=== PATIENT | female | born 1935 | race Hispanic/Latino ===

== ENCOUNTER 2016-10-05 12:45 | Inpatient (IN) | payer MEDICARE, BC ==
[2016-10-05 12:52] VITALS: BMI 20.3
--- NOTE | 2016-10-05 12:56 | ED PDOC ---
Arrival/HPI - General Time Seen by Provider: 10/05/16 12:51 Historian: Patient - Critical Care Critical Care Minutes: 45 minutes - History of Present Illness Narrative History of Present Illness (Text): 10/05/16 12:45 Pt is an 81 year old female, whose past medical history includes 60 yr tobacco hx, Vertigo, COPD, Breast Cancer, and eye surgery, who presents to the emergency room complaining of dizziness and weakness in both of her her legs about an hour prior to arrival. Grandniece called EMS because of the weakness. While en route to ED w/ EMS patient could lift both arms but at emergency room, patient could not lift up her left arm. Pt also c/o a mild headache. Pt noted to have a clonic jerk in her left arm and pt states that she has never had this type of twitching movement in her arm. Patient denies any chest pain or any other complaint at this time. PMD: Dr. Buckner Time/Duration: 1 hour Symptom Onset: Sudden Symptom Course: Worsening Activities at Onset: Light Context: Home Past Medical History - Provider Review Nursing Documentation Reviewed: Yes - Infectious Disease Hx of Infectious Diseases: None - Cardiac Hx Cardiac Disorders: Yes Hx Hypertension: Yes Hx Pacemaker: No - Pulmonary Hx Respiratory Disorders: Yes Hx Chronic Obstructive Pulmonary Disease (COPD): Yes - Neurological Hx Neurological Disorder: No Hx Paralysis: No Hx Transient Ischemic Attacks (TIA): No Hx Vertigo: No - HEENT Hx HEENT Disorder: No - Renal Hx Renal Disorder: No - Endocrine/Metabolic Hx Endocrine Disorders: No Hx Diabetes Mellitus Type 1: No - Hematological/Oncological Hx Blood Disorders: Yes Hx Blood Transfusions: No Hx Blood Transfusion Reaction: No Hx Cancer: Yes (right breast mastectomy) - Integumentary Hx Dermatological Disorder: No - Musculoskeletal/Rheumatological Hx Musculoskeletal Disorders: Yes - Gastrointestinal Hx Gastroesophageal Reflux: Yes - Psychiatric Hx Emotional Abuse: No Hx Physical Abuse: No Hx Substance Use: No - Surgical History Hx Appendectomy: Yes Hx Mastectomy: Yes (right) - Anesthesia Hx Anesthesia: Yes Hx Anesthesia Reactions: No Hx Malignant Hyperthermia: No - Suicidal Assessment Feels Threatened In Home Enviroment: No Family/Social History - Physician Review Nursing Documentation Reviewed: Yes Family/Social History: Neoplasm/Cancer Smoking Status: Heavy Smoker > 10 Cigarettes Daily Hx Alcohol Use: No Hx Substance Use: No Allergies/Home Meds Allergies/Adverse Reactions: Allergies gluten Allergy (Verified 10/05/16 13:08) DIARRHEA Home Medications: Home Meds Medication Instructions Recorded Confirmed Folic Acid 1 mg PO BID 04/17/13 06/12/14 Tiotropium [Spiriva] 18 mcg IH QAM 04/17/13 10/05/16 Magnesium 400 mg PO DAILY 06/11/14 06/12/14 Review of Systems - Review of Systems Constitutional: absent: Fevers, Night Sweats Eyes: absent: Vision Changes ENT: absent: Hearing Changes Respiratory: absent: SOB Cardiovascular: absent: Chest Pain Gastrointestinal: absent: Abdominal Pain Genitourinary Female: absent: Urine Output Changes Musculoskeletal: absent: Back Pain Neurological: Dizziness, Other (Weakness in both legs; jerk in left arm) Endocrine: absent: Diaphoresis Hemo/Lymphatic: absent: Easy Bleeding Psychiatric: absent: Depression Physical Exam Vital Signs Reviewed: Yes Vital Signs Temp Pulse Resp BP Pulse Ox 10/05/16 16:54 106 H 24 128/73 93 L 10/05/16 15:32 93 H 18 108/61 98 10/05/16 15:07 99 H 107/83 10/05/16 14:45 114 H 18 107/83 97 10/05/16 14:40 117 H 12 101/45 L 97 10/05/16 14:38 120 H 18 101/45 L 98 10/05/16 14:12 131 H 18 126/56 L 10/05/16 13:51 98.0 F 130 H 18 104/67 95 Temperature: Afebrile Pulse: Tachycardic Respiratory Rate: Normal Appearance: Positive for: Non-Toxic, Other (in NAD) Pain Distress: None Finger Stick Blood Glucose: 151 - Systems Exam Head: Present: Atraumatic, Normocephalic Pupils: Present: PERRL Extroacular Muscles: Present: EOMI Conjunctiva: Present: Normal Ears: Present: Normal Mouth: Present: Moist Mucous Membranes Pharnyx: Present: Normal Nose (External): Present: Atraumatic Neck: Present: Normal Range of Motion Respiratory/Chest: Present: Clear to Auscultation, Good Air Exchange. No: Respiratory Distress, Accessory Muscle Use Cardiovascular: Present: Normal S1, S2, Irregular Rhythm, Tachycardic. No: Murmurs Abdomen: Present: Normal Bowel Sounds. No: Tenderness, Distention, Peritoneal Signs Back: Present: Normal Inspection Upper Extremity: Present: Other (myoclonic jerking movements in left arm that stopped during exam) Lower Extremity: Present: Normal Inspection. No: Edema Neurological: Present: GCS=15, CN II-XII Intact, Speech Normal Skin: Present: Warm, Dry, Normal Color. No: Rashes Psychiatric: Present: Alert, Oriented x 3, Normal Insight, Normal Concentration Medical Decision Making ED Course and Treatment: 10/05/16 12:45 Impression: Focal seizure left arm Differential Diagnosis included but are not limited to: New onset left arm focal seizure vs. space occupying lesion in the brain vs. intracranial bleed vs. Stroke (less likely) Plan: -- EKG -- Head CT w/o contrast -- Chest X-ray -- Labs -- Reassess and disposition Prior Visits: Notes and results from previous visits were reviewed. Patient last seen in the ED on 04/28/15 status post mechanical fall. Patient signed out leaving Against Medical Advice. Progress Notes: 10/05/16 12:50 Case discussed with Neurologist vibration engineer, Dr. Sandoval, who states that her symptoms are not likely to be stroke-related. Recommends CT and eventual MRI. 10/05/16 13:[address] Sandoval, who agrees with patient plan to admit patient to telemetry. 10/05/16 13:[address] w/o contrast: Creator : Cesar German MD FINDINGS: HEMORRHAGE:No intracranial hemorrhage. BRAIN: There is a well-circumscribed hyper dense mass in the right parietal lobe measuring 12 mm seen on image 28 series 7. There is adjacent vasogenic edema. There is a more poorly defined area of hyper density in the right parietal white matter image 27 with surrounding vasogenic edema. The findings are consistent with metastatic disease. VENTRICLES:Unremarkable. No hydrocephalus. CALVARIUM:Unremarkable. PARANASAL SINUSES:Unremarkable as visualized. No significant inflammatory changes. MASTOID AIR CELLS:Unremarkable as visualized. No inflammatory changes. OTHER FINDINGS:The findings were discussed with Dr. Gonzalez at 1:15 p.m. IMPRESSION: Metastatic disease in the right posterior frontal and parietal lobes with surrounding vasogenic edema. 10/05/16 14:00 Chest X-ray: Creator : Cesar German MD FINDINGS: LUNGS:No active pulmonary disease. PLEURA:No significant pleural effusion identified, no pneumothorax apparent. CARDIOVASCULAR:Normal. OSSEOUS STRUCTURES:No significant abnormalities. VISUALIZED UPPER ABDOMEN:Normal. OTHER FINDINGS:None. IMPRESSION: No active disease. 10/05/16 14:[address] Serrano, who accepts patient into his service. - Critical Care Critical Care Minutes: 45 minutes - Lab Interpretations Lab Results: 10/05/16 13:04 10/05/16 13:26 Lab Results 10/05/16 13:33: Blood Type Cancelled, Antibody Screen Cancelled, BBK History Checked Cancelled 10/05/16 13:26: Sodium 132, Potassium 3.9, Chloride 98, Carbon Dioxide 23, Anion Gap 15, BUN 18, Creatinine 1.0, Est GFR ( Amer) > 60, Est GFR (Non- Af Amer) 53, Random Glucose 128 H, Calcium 8.9, Total Bilirubin 0.5, AST 30, ALT 14, Alkaline Phosphatase 84, Troponin I < 0.01, Total Protein 6.4, Albumin 3.0, Globulin 3.4, Albumin/Globulin Ratio 0.9 L, Triglycerides 130, Cholesterol 135, LDL Cholesterol Direct 73, HDL Cholesterol 35 10/05/16 13:04: WBC 10.9, RBC 4.23, Hgb 12.8, Hct 37.9, MCV 89.6, MCH 30.3, MCHC 33.8, RDW 15.0 H, Plt Count 448, MPV 9.5, Gran % 74.2 H, Lymph % (Auto) 17.0 L, [place] % (Auto) 7.8 H, Eos % (Auto) 0.7 L, Baso % (Auto) 0.3, Gran # 8.12 H, Lymph # 1.9, [place] # 0.9 H, Eos # 0.1, Baso # 0.03, PT 12.6 H, INR 1.17 H, APTT 28.0 - RAD Interpretation Radiology Orders: 10/05/16 12:53 HEAD W/O (CODE STROKE) [CT] Stat CHEST PORTABLE [RAD] Stat - EKG Interpretation EKG Interpretation (Text): Atrial fib with RVR - Medication Orders Current Medication Orders: Tiotropium [place] (Spiriva) 18 mcg IH QAM LISANDRO Discontinued Medications Levetiracetam 1,000 mg/ Sodium (Chloride) 110 mls @ 440 mls/hr IV ONCE ONE Stop: 10/05/16 13:29 Last Admin: 10/05/16 13:37 Dose: 440 MLS/HR eMAR Start Stop Document 10/05/16 13:37 MMA (Rec: 10/05/16 13:39 MMA [id number] Intravenous Solution Start Date 10/05/16 Start Time 13:38 End Date 10/05/16 End time 13:53 Total Infusion Time 15 Lorazepam (Ativan) 1 mg IVP ONCE ONE PRN Reason: Protocol Stop: 10/05/16 12:55 Last Admin: 10/05/16 13:10 Dose: 1 MG Behavioural Document 10/05/16 13:10 [facility] (Rec: 10/05/16 13:21 [facility] [id number]) Maintenance Maintenance Dose No Nonmedicinal Nonmedicinal Interventions See nurse's notes Behavior Behavior for Medication: Anxiety IVP Administration Document 10/05/16 13:10 [facility] (Rec: 10/05/16 13:21 [facility] [id number]) Charges for Administration # of IVP Administrations 1 Metoprolol Tartrate (Lopressor) 25 mg PO STAT STA Stop: 10/05/16 14:41 Last Admin: 10/05/16 15:07 Dose: 25 MG MAR Pulse and Blood Pressure Document 10/05/16 15:07 MMA (Rec: 10/05/16 15:08 MMA [email or web address] Pulse Pulse Rate (60-90) 99 Blood Pressure Blood Pressure (100/60-150/90) 107/83 Metoprolol Tartrate (Lopressor) 5 mg IVP STAT STA Stop: 10/05/16 15:16 Last Admin: 10/05/16 15:32 Dose: Not Given Non-Admin Reason: BP Parameters Not Met MAR Pulse and Blood Pressure Document 10/05/16 15:32 MMA (Rec: 10/05/16 15:33 MMA [email or web address] Pulse Pulse Rate (60-90) 93 Blood Pressure Blood Pressure (100/60-150/90) 108/61 NIHSS Scale ([place]) Time Performed: 12:55 - How Severe is the Stoke Baseline Level of Consciousness: 0=Alert LOC to Questions: 0=Both comments correct LOC to commands: 0=Obeys both correctly Best Gaze: 0=Normal Visual: 0=No visual loss Facial: 0=Normal Motor Arm - Left: 2=Falls before 10 sec (left arm keeps twitching/myoclonic movements) Motor Arm - Right: 0=No drift Motor Leg - Left: 0=No drift Motor Leg - Right: 0=No drift Limb Ataxia: 1=Present Upper or Lower Sensory: 0=Normal Best Language: 0=No aphasia Dysarthia: 0=Normal articulation Extinction & Inattention (Neglect): 0=Normal, no object Score: 3 Risk Level: Minor Stroke Risk - Scribe Statement The provider has reviewed the documentation as recorded by the Margieibjoselin Gonzalez Provider Scribe Attestation: All medical record entries made by the Margieibe were at my direction and personally dictated by me. I have reviewed the chart and agree that the record accurately reflects my personal performance of the history, physical exam, medical decision making, and the department course for this patient. I have also personally directed, reviewed, and agree with the discharge instructions and disposition. Disposition/Present on Arrival - Present on Arrival Any Indicators Present on Arrival: No History of DVT/PE: No History of Uncontrolled Diabetes: No Urinary Catheter: No History Surgical Site Infection Following: None - Disposition Have Diagnosis and Disposition been Completed?: Yes Diagnosis: Focal (motor) epilepsy, Brain metastases, Atrial fibrillation Disposition: HOSPITALIZED Disposition Time: 13:25 Patient Plan: Admission Patient Problems: Current Active Problems Problem Status Diagnosed Brain metastases Acute Focal (motor) epilepsy Acute Condition: SERIOUS
[2016-10-05 13:05] LABS: ADD MANUAL DIFF? NO
[2016-10-05 13:13] LABS: BASO # 0.03 K/mm3 (0.0-2.0); BASO % 0.3 % (0.0-3.0); EOS # 0.1 (0.0-0.7); EOS % 0.7 % (1.5-5.0); GRAN # 8.12 (1.4-6.5); GRAN % 74.2 % (50.0-68.0); HEMATOCRIT 37.9 % (36.0-48.0); LYMPH # 1.9 (1.2-3.4); MEAN CELL VOLUME 89.6 fL (80.0-105.0); MEAN CORPUSCULAR HEMOGLOBIN 30.3 pg (25.0-35.0); MEAN CORPUSCULAR HGB CONC 33.8 g/dl (31.0-37.0); MEAN PLATELET VOLUME 9.5 fl (7.0-11.0); MONO # 0.9 (0.1-0.6); MONO % 7.8 % (1.0-6.0); PLATELET COUNT 448 10^3/uL (120.0-450.0); WHITE BLOOD COUNT 10.9 10^3/ul (4.5-11.0)
[2016-10-05] MEDS ORDERED: levETIRAcetam 1,000 MG in Sodium Chloride 0.9% 100 ML IV ONE (13:15)
[2016-10-05 13:18] LABS: INR 1.17 (0.93-1.08)
--- NOTE | 2016-10-05 13:20 | CT ---
PROCEDURE: CT HEAD WITHOUT CONTRAST. HISTORY: Code Stroke COMPARISON: None available. TECHNIQUE: Axial computed tomography images were obtained through the head/brain without intravenous contrast. Radiation dose: Total exam DLP = 1715 mGy-cm. FINDINGS: HEMORRHAGE: No intracranial hemorrhage. BRAIN: There is a well-circumscribed hyper dense mass in the right parietal lobe measuring 12 mm seen on image 28 series 7. There is adjacent vasogenic edema. There is a more poorly defined area of hyper density in the right parietal white matter image 27 with surrounding vasogenic edema. The findings are consistent with metastatic disease. VENTRICLES: Unremarkable. No hydrocephalus. CALVARIUM: Unremarkable. PARANASAL SINUSES: Unremarkable as visualized. No significant inflammatory changes. MASTOID AIR CELLS: Unremarkable as visualized. No inflammatory changes. OTHER FINDINGS: The findings were discussed with Dr. Gonzalez at 1:15 p.m. IMPRESSION: Metastatic disease in the right posterior frontal and parietal lobes with surrounding vasogenic edema.
[2016-10-05 13:45] LABS: ALB/GLOB RATIO 0.9 (1.1-1.8); ALKALINE PHOSPHATASE 84 U/L (38-133); ALT/SGPT 14 U/L (7-56); AST/SGOT 30 U/L (15-39); BILIRUBIN,TOTAL 0.5 mg/dL (0.2-1.3); BLOOD UREA NITROGEN 18 mg/dL (7-21); CALCIUM 8.9 mg/dL (8.4-10.5); CARBON DIOXIDE 23 mmol/L (21-33); CHLORIDE 98 mmol/L (98-107); CHOLESTEROL 135 mg/dL (130-200); GFR AFRICAN-AMERICAN > 60; GLUCOSE,RANDOM 128 mg/dL (70-110); POTASSIUM 3.9 mmol/L (3.6-5.0); SODIUM 132 mmol/L (132-148); TOTAL PROTEIN 6.4 g/dL (5.8-8.3)
--- NOTE | 2016-10-05 13:50 | RAD ---
HISTORY: code stroke COMPARISON: 09/29/2016 FINDINGS: LUNGS: No active pulmonary disease. PLEURA: No significant pleural effusion identified, no pneumothorax apparent. CARDIOVASCULAR: Normal. OSSEOUS STRUCTURES: No significant abnormalities. VISUALIZED UPPER ABDOMEN: Normal. OTHER FINDINGS: None. IMPRESSION: No active disease.
[2016-10-05 13:58] LABS: TROPONIN I < 0.01 ng/mL
[2016-10-05] MEDS ORDERED: diltiaZEM IVPB 100mg in NS 100 ML IV PRN (14:19)
[2016-10-05] MEDS ORDERED: Metoprolol 1 mg/ml Inj IVP STA (15:15)
--- NOTE | 2016-10-05 16:58 | CARD ---
APPROVED REPORT EKG Measurement Heart [id number] <Conclusion> Atrial fibrillation with rapid ventricular response Right axis deviation RBBB STTW changes Baseline artifact V 4,5
[2016-10-05] MEDS ORDERED: Influenza Vaccine 45 MCG/0.5 ml IM ONE (18:39)
[2016-10-05] MEDS ORDERED: Pneumococcal 23-Valent Vaccine IM ONE (18:39)
[2016-10-06] MEDS ORDERED: Dexamethasone 4 mg/1 ml IVP SCH (08:30)
[2016-10-06] MEDS ORDERED: Sodium Chloride 0.9% 1,000 ML IV SCH (08:45)
[2016-10-06] MEDS: Dexamethasone 4 mg/1 ml IVP SCH ×2 (09:11→21:32)
[2016-10-06] MEDS: Tiotropium 18 mcg Cap For Inhalation IH SCH (09:16)
--- NOTE | 2016-10-06 09:47 | CARD ---
APPROVED REPORT EKG Measurement Heart [id number] <Conclusion> Atrial fibrillation with rapid ventricular response Right axis deviation RBBB STTW changes No change
--- NOTE | 2016-10-06 10:09 | CON ---
DATE: 10/06/2016 REASON FOR CONSULTATION: Weakness and twitching on the left side. HISTORY OF PRESENTING ILLNESS: The patient is an 81-year-old female who was brought into the [facility] after she was feeling dizzy and weakness in both her arms and legs about 1 hour prior to arrival. In the Emergency Room, patient was noted to have weakness in her left arm and left arm was twitching. The patient was unable to lift her left arm. A code stroke was called. The patient was noted to h ave clonic movement in her left arm and apparently she never had this before. Once patient was given Ativan and her twitching stopped and after that, patient was able to lift her arm without any proble m. The patient denies to have any headache or dizziness. Never had a seizure before. Denies any fu rther weakness in her arms or legs. REVIEW OF SYSTEMS: Denies any headache, chest pain, shortness of breath, abdominal pain, constipatio n, diarrhea, dysuria, pyuria, cough or sputum production. PAST MEDICAL HISTORY: Includes breast cancer, hypertension. MEDICATIONS AT HOME: Included Spiriva, omeprazole, olmesartan/hydrochlorothiazide, iron, folic acid, vitamin B12, ascorbic acid and Arimidex. ALLERGIES: GLUTEN. SOCIAL HISTORY: Denies smoking, use of alcohol or illicit drugs. FAMILY HISTORY: Reviewed and noncontributory to the patient. PHYSICAL EXAMINATION: GENERAL: The patient is an elderly, pleasant female, lying on the bed, in no acute distress. VITAL SIGNS: Her blood pressure is 136/60, heart rate is 83 per minute, breathing at a rate of 16 pe r minute, temperature is 97.5 degrees Fahrenheit. HEENT: Head is normocephalic, atraumatic. NECK: Supple. There are no carotid bruits. LUNGS: Clear. CARDIOVASCULAR: S1, S2 audible. No murmurs. ABDOMEN: Soft, nontender, bowel sounds are present. NEUROLOGIC EXAMINATION: MENTAL STATUS: The patient is awake, alert, oriented to time, place, person. Speech is fluent. Nam ing and repetition normal. Memory and cognition appears intact. CRANIAL NERVES: Pupils are 3 mm bilaterally, reactive to light. Visual ortiz are full. Extraocula r movements are intact. There is no facial asymmetry. Palate is upgoing bilaterally and tongue is m idline. MOTOR: Tone is normal. Power is 5/5 bilaterally in all extremities. Reflexes 1+ and symmetrical. Plantars downgoing bilaterally. CEREBELLAR: [id number] shows no dysmetria. LABORATORIES: Reviewed, shows WBC of 10.9, hemoglobin 12.8, hematocrit of 37.9 and platelets of 448. Sodium is 132, potassium 3.9, chloride 98, carbon dioxide 23, BUN of 18, creatinine 1.0, and glucos e of 128. She had a CT scan of the head done, which shows metastatic disease in the right posterior frontal and parietal lobes with surrounding vasogenic edema. IMPRESSION: 1. New onset of focal seizure, which appears to be secondary to underlying brain metastasis. 2. History of breast cancer. RECOMMENDATIONS: 1. The patient was given Keppra in the Emergency Room. We will continue her on Keppra 250 mg twice a day. 2. The patient also was initiated on Decadron 4 mg every 8 hours. Her edema is not that significant . We will decrease it to 4 mg every 12 hours and then slowly taper it off. 3. The patient to have MRI of the brain with and without contrast. 4. The patient to have an electroencephalogram. 5. The patient to have oncology evaluation and may need radiation therapy. 6. Please continue supportive care and other treatment. Thank you for the opportunity to participate in the care of this patient. Doug Saenz MD cc: [id number] TT: 10/06/2016 10:08:48 Confirmation # [id number] Dictation # [id number]
--- NOTE | 2016-10-06 10:45 | HP ---
CHIEF COMPLAINT AND HISTORY OF PRESENT ILLNESS: This is an 81-year-old female who is coming in to [facility] with complaints of left arm weakness. The patient was having some confusion. There is al so weakness in her legs, and so she was brought in for further evaluation. She has a past medical hi story of COPD, breast cancer with mastectomy. The patient came in to the Emergency Room, was having focal neurological seizure-like activity. She was given Ativan and was started on anti-seizure medications. The patient is currently comfortable. She denies any chest pain or shortness of breath. She does know the place. She knows the year, the President. She does not know exactly what happened that brought her to the hospital. The patient's clonic jerks have decreased. She has no abdominal pain, no back pain, no dysuria or frequency, no n octuria. She had a colonoscopy done in 05/2014 that shows polyps. The patient had a breast ultrasound done in 06/2016 that showed no breast masses. There was also a mammogram that was done in 06/2016. It shows no evidence of malignancy or changes. The patient's niece was able to give me information about the patient's history. The patient had a m astectomy done by Dr. Sanchez. The patient was also on a "pill" for 5 years. It may have been tamox ifen. ALLERGIES: GLUTEN. HOME MEDICATIONS: Folic acid, Spiriva, magnesium. PAST MEDICAL HISTORY: Hypertension, celiac disease, GERD, peripheral edema, COPD, colon polyps. PAST SURGICAL HISTORY: Appendectomy, right breast mastectomy. SOCIAL HISTORY: She is a smoker, half a pack per day for 60 years. Continues to smoke. She lives w ith her niece. FAMILY HISTORY: Noncontributory. PHYSICAL EXAMINATION: VITAL SIGNS: Temperature is 97.5, pulse of 83. Blood pressure is 136/60, respirations 18, O2 satura tion 98%. Height is 5 feet 3 inches. Weight is 115 pounds. BMI is 20.4. GENERAL: The patient is lying in bed, flat, and in no apparent distress. HEAD AND NECK EXAM: Atraumatic, normocephalic. Conjunctivae are pink. Throat clear and mouth with moist mucosa. Oropharynx benign. EYES: Extraocular movements are intact. PERRLA. NECK: Supple. No JVD, thyromegaly, or adenopathy. No bruits. HEART: S1 and S2 regular rate and rhythm. No murmurs, rubs, or gallops. LUNGS: Clear to auscultation bilaterally. No wheezing rales or rhonchi appreciated. No retraction s on exam. ABDOMEN: Soft, nontender, nondistended. Bowel sounds are positive in all quadrants. No rebound. No hepatosplenomegaly. EXTREMITIES: No cyanosis, clubbing, or edema. In the left arm, there is 4/5 power distally. NEURO: No facial asymmetry, tongue is midline, no uvula deviation. Power is 5/5 in upper extremity and 5/5 in lower extremity. Sensation is normal in upper extremity and lower extremity. PSYCH: Awake, alert, oriented x3. No anxiety or depression symptoms. Good insight. Normal affec t. : No CVA tenderness VASCULAR: 2+ pulses in carotid and pedal pulses. SKIN: No erythema or abnormal nodules noted. SPINE: Normal curvature. LYMPHADENOPATHY: No anterior cervical or posterior cervical adenopathy. No inguinal adenopathy. LABORATORY DATA: White count of 10.9, hemoglobin 12.8, and platelet count is 448. INR is 1.1. Chem istry shows a sodium 132, potassium 3.9. Creatinine is 1.0. Alk phos of 84. LDL is 73. CT of the head shows metastatic disease in the right posterior frontal and parietal lobes. Chest x-ray done shows no active disease. EKG shows atrial fibrillation with rapid rate. Repeat EKG shows a heart rate of 134 with rapid rate. There are T-wave inversions in V1 and V2. ASSESSMENT: 1. Focal seizures secondary to brain metastasis. 2. Metastatic lesions in the brain, unknown primary. 3. Atrial fibrillation, new onset. 4. Smoking. 5. Gait dysfunction. 6. Cerebral edema. PLAN: The patient is going to be admitted to the hospital. She has new brain lesions. She has a hi story of breast cancer that was treated with no signs of metastatic disease. She had colon polyps th at were removed about 3 years ago. The patient is going to be seen by Dr. Vincent for consultation. I will also ask neurology to follow the patient. The patient has been started on dexamethasone for the cerebral edema. The patient was given anti-seizure medications. I will place the patient on bubba otine because of the smoking history, and she is not able to smoke. She is going to be on IV fluids. She is going to have a swallowing evaluation done. She is currently n.p.o. We will also get a TSH . The patient is going to be placed on Cardizem for the atrial fibrillation. Syd Serrano MD cc: [id number] TT: 10/06/2016 10:44:40 jn
--- NOTE | 2016-10-06 11:34 | CON ---
DATE: 10/06/2016 INDICATIONS: Atrial fibrillation. HISTORY OF PRESENT ILLNESS: This is an 81-year-old woman admitted yesterday through the Emergency Room. She was brought there by her daughter because of weakness, dizziness, weakness of her legs and left upper extremity along with jerking motions of the left arm. These findings were relatively new. There was also headache. There was no chest pain, no shortness of breath, orthopnea, PND, syncope, presyncope, lightheadedness, palpitations, claudication, fever, chills, cough, sputum production or hemoptysis. There was no abdominal pain, nausea, vomiting, diarrhea, constipation, or melena. PAST MEDICAL HISTORY: Notable for breast cancer status post right mastectomy, hypertension and COPD. She is a current smoker of about 1/2 pack of cigarettes per day. There is no history of myocardial infarction, angina, rheumatic fever , congestive heart failure, diabetes, stroke, or gout. MEDICATIONS: At the time of admission include Arimidex, Caltrate plus vitamin D , Centrum, Feosol, folic acid, magnesium, olmesartan HCT, omeprazole, Spiriva, vitamin B12, vitamin C. ALLERGIES: There are no medication allergies reported. SOCIAL HISTORY: She lives at home. She is a smoker. She does not drink significantly. FAMILY HISTORY: Noncontributory. REVIEW OF SYSTEMS: Ten point review of systems otherwise unremarkable except as noted above. PHYSICAL EXAMINATION: GENERAL: She is a well-developed elderly woman lying in bed on telemetry, in no acute distress. VITAL SIGNS: She is in sinus rhythm at the moment, but has been in atrial fibrillation, heart rate is 66. She is afebrile, blood pressure 121/61, respirations 18-20, O2 sat 97-98% on nasal cannula. HEENT: Reveals no neck vein distention, thyromegaly, or carotid bruits. Mucous membranes are moist. Conjunctivae are pink. NECK: Supple. CHEST: Lung ortiz are clear. HEART: Revealed normal first and second heart sounds. The rhythm is slightly irregular. ABDOMEN: Soft, bowel sounds are present. No mass, organomegaly, tenderness, rebound, or guarding. NEUROLOGIC: She is awake and alert. SKIN: Warm and dry. No rash or cellulitis. PSYCHIATRIC: Normal as to mood and affect. EXTREMITIES: No cyanosis, clubbing, or edema. LABORATORY AND IMAGING: A chest x-ray is a portable study; reveals no active disease. EKG: Atrial fibrillation, right bundle branch block, ST-T wave changes. CT scan of the head is noted, consistent with metastatic disease. CBC is unremarkable. PT, INR, PTT unremarkable. Electrolytes, BUN, creatinine , blood sugars unremarkable. LFTs unremarkable. Troponin less than 0.01. Lipids noted: LDL 73. IMPRESSION: The patient is an 81-year-old woman smoker admitted with dizziness and weakness, found to have apparent metastatic disease on CT scan of the head with a history of breast cancer status post right mastectomy, who was admitted with atrial fibrillation with rapid ventricular response. She has history of cigarette smoking and chronic obstructive pulmonary disease as well as hypertension. I have discussed the case with Dr. Serrano. At this time, she is on telemetry. Very conservative care is planned. Hospice has been asked to evaluate her. She is on p.o. Cardizem at this moment; we will titrate this to achieve rate control. Anticoagulation to prevent embolic events should be considered but, given her brain metastasis, I would hold on this and ask neurology for an opinion. She is getting diltiazem, Spiriva, IV fluids and nicotine patch. MRI of the brain is ordered. She has a neurologic consultation with Dr. Saenz. A TSH is ordered. I will follow along with you. Overall, conservative cardiac care is anticipated. Humberto Norton MD cc: [id number] TT: 10/06/2016 11:33:01 Confirmation # [id number] Dictation # [id number] daja VILLASENOR
[2016-10-06] MEDS ORDERED: Gadodiamide 287 MG/ML VIAL (15ML) IV ONE (13:23)
--- NOTE | 2016-10-06 14:08 | MRI ---
PROCEDURE: MRI BRAIN WITH AND WITHOUT CONTRAST HISTORY: seizure brain mets COMPARISON: Comparison is made to the previous MRI dated 05/04/2015 TECHNIQUE: Multiplanar, multisequence MR images of the brain were obtained with and without intravenous contrast enhancement. FINDINGS: HEMORRHAGE: There are multiple foci of hypointense T2 GRE images surrounding with vasogenic edema likely represent hemorrhagic metastasis that demonstrate slight hyperintense T1 signal also. DWI: Evidence of a territorial infarct. Multiple lesion in the brain demonstrate mild diffusion restriction corresponding to enhancing lesion and suggestive of metastasis. BRAIN PARENCHYMA: Multiple enhancing mass lesions in the brain suggestive of metastasis surrounding with large vasogenic edema. The largest lesion is seen at the right parietal lobe measures 1.3 centimeter demonstrate ring enhancement and demonstrate hypo intense T2 GRE signal surrounding with large vasogenic edema. There is a slight right to left midline shift approximately 3.3 millimeter noted. Moderate atrophy and moderate to extensive chronic microvascular white matter ischemic disease. ENHANCEMENT: Multiple enhancing lesions seen. VENTRICLES: Dilated ventricles likely due to atrophy P CRANIUM: Unremarkable. ORBITS: Grossly unremarkable. PARANASAL SINUSES/MASTOIDS: Clear VASCULAR SYSTEM: Skull base flow voids intact. OTHER FINDINGS: None . IMPRESSION: Suboptimal study due to patient's motion artifact. Multiple enhancing mass lesions surrounding with vasogenic edema consistent with widespread brain metastasis. The largest lesion seen at the right parietal lobe measures 1.3 centimeter demonstrates hypointense T2 GRE signal suggestive of hemorrhagic metastasis. Slight approximately 3 millimeter [id number] midline shift. Atrophy and white matter chronic microvascular ischemic disease.
--- NOTE | 2016-10-06 20:21 | EEG ---
DATE: 10/06/2016 INTRODUCTION: This is a digitally recorded EEG monitoring using standard EEG montages. BACKGROUND RHYTHM: The EEG shows a background activity of 8 Hz alpha activity in parietooccipital re gion. The EEG activity is bilaterally symmetrical and synchronous. There is attenuation of the back ground activity on eye opening. Small amount of myogenic artifact noticed in this EEG recording. ABNORMAL POTENTIALS: No spikes, sharp waves or focal slowing was seen. PHOTIC STIMULATION AND HYPERVENTILATION: Photic stimulation did not reveal any abnormality. Hyperve ntilation was not performed. IMPRESSION: Normal EEG. No epileptiform activity seen in this EEG recording. Doug Saenz MD cc: [id number] TT: 10/06/2016 20:20:50 Confirmation # [id number] Dictation # [id number] [email or web address]
--- NOTE | 2016-10-07 02:57 | CON ---
DATE: 10/06/[address] Vincent. CHIEF COMPLAINT: Mental status change, weakness. HISTORY OF PRESENT ILLNESS: The patient is an 81-year-old female admitted by the Emergency Room for focal neurologic changes with a history of left arm weakness, confusion, dizziness. At initial visit , patient unable to lift up her left arm with code stroke called. She was given Ativan, for which th is then improved. With this, the patient is now seen with family members at the bedside, sitting up on the telemetry floor bed in no acute distress, unaware of her positive findings on her recent testi ng with a CT of the head with metastatic disease in the right posterior frontal and parietal lobes wi th surrounding vasogenic edema done yesterday. ALLERGIES: GLUTEN. MEDICATIONS: Spiriva, omeprazole, losartan and hydrochlorothiazide, iron, folic acid, vitamin B12, a scorbic acid and Arimidex. PAST MEDICAL HISTORY: Significant for hypertension, GERD, celiac disease, peripheral edema, COPD, co lonic polyps, breast cancer. She is status post right breast mastectomy and appendectomy. The patient's previous EKGs were reviewed with the patient now, noted to be in atrial fibrillation wi th rapid ventricular response, not noted on EKG 04/2015. 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 Her other testing at that point included ER positive, IN negative, HER-2 negative findings agai n in 01/31/2012. The patient's only other testing will be reviewed below. FAMILY HISTORY AND SOCIAL HISTORY: Noncontributory. The patient is a smoker, half pack a day for 60 years, continues to smoke. Nonethanolic. REVIEW OF SYSTEMS: Essentially negative to questioning except as above. LABORATORY DATA: There is report that a mammogram done 06/2016 showed no evidence of malignancy or c hanges with Dr. Sanchez performing her mastectomy in the past. PHYSICAL EXAMINATION: VITAL SIGNS: Temperature 97.7, pulse 88, respirations 18, blood pressure 127/66, pulse ox of 98%. HEENT: Unremarkable. NECK: Supple. HEART: Irregular, irregular. LUNGS: Clear. ABDOMEN: Soft, nontender with history of invasive ductal carcinoma with mastectomy on the right. EXTREMITIES: No edema. SKIN: Warm, dry and clear. NEUROLOGIC: Awake and alert, but confused. The patient's labs were done, white blood cell count yesterday was 10.9, hemoglobin 12.8, hematocrit 37.9, platelet count of 448,000 with a chem metabolic panel from yesterday within normal limits. Non fasting glucose of 111. Her INR was 1.17. IMAGING: The patient's chest x-ray was done yesterday, it was read as no active disease. CAT scan of her head was done yesterday, was read as metastatic disease in the right posterior fronta l and parietal lobes with surrounding vasogenic edema. Her EKG was done yesterday, showing atrial fibrillation with rapid ventricular response, right axis d eviation, right bundle branch block, ST-T wave changes, baseline artifact. A repeat EKG was done lat er on that afternoon, which was read as atrial fibrillation, right axis deviation, RBBB no change. A sleep and awake EEG was done showing normal EEG, no epileptiform activity seen on the EEG. MRI of her brain was done today. It was read as suboptimal study due to motion, multiple enhancing m ass lesions surrounding vasogenic edema consistent widespread brain metastases, largest lesion right parietal lobe measuring 1.3 cm, demonstrates hyperintense T2 GRE signal suggestive of hemorrhagic met astases with slight approximately 3 mm right to left midline shift, atrophy of white matter, chronic microvascular ischemia. ASSESSMENT: Mental status change secondary to newly diagnosed brain metastatic disease, history of b reast cancer, rule out seizure disorder, atrial fibrillation new onset, history of dizziness, cerebra l edema, smoker, hypertension, chronic obstructive pulmonary disease. PLAN: The patient is to continue present medical regimen with IV Decadron being given with recommend ations for a consult with Dr. Nagel, radiation oncology, as per Dr. Vincent's recommendation with the p rimary neoplastic change unknown at present. Suspected to be tumor markers with continued xu toring of the patient with seizure prophylaxis with Keppra to continue as per Dr. Saenz. Danielle hester ch was also applied with IV steroids to continue. We will let GI prophylaxis with an H2 janelle. He r atrial fibrillation will be addressed by Dr. Norton with conservative care plan. Prognosis for thi s patient is guarded. Aashish Barbara CRAIG cc: [id number] TT: 10/07/2016 02:57:30 Confirmation # [id number] Dictation # [id number] mn
[2016-10-07 06:16] LABS: HEMATOCRIT 31.1 % (36.0-48.0); MEAN CELL VOLUME 88.4 fL (80.0-105.0); MEAN CORPUSCULAR HEMOGLOBIN 29.5 pg (25.0-35.0); MEAN CORPUSCULAR HGB CONC 33.4 g/dl (31.0-37.0); MEAN PLATELET VOLUME 9.6 fl (7.0-11.0); RED CELL DISTRIBUTION WIDTH 14.8 % (11.5-14.5); WHITE BLOOD COUNT 6.2 10^3/ul (4.5-11.0)
[2016-10-07 06:40] LABS: ALB/GLOB RATIO 0.9 (1.1-1.8); ALKALINE PHOSPHATASE 66 U/L (38-133); ALT/SGPT 19 U/L (7-56); AST/SGOT 24 U/L (15-39); BILIRUBIN,TOTAL 0.3 mg/dL (0.2-1.3); BLOOD UREA NITROGEN 19 mg/dL (7-21); CALCIUM 8.5 mg/dL (8.4-10.5); CARBON DIOXIDE 28 mmol/L (21-33); CHLORIDE 102 mmol/L (95-110); GFR AFRICAN-AMERICAN > 60; GLUCOSE,RANDOM 121 mg/dL (70-110); POTASSIUM 4.3 mmol/L (3.6-5.0); SODIUM 135 mmol/L (132-148); TOTAL PROTEIN 5.3 g/dL (5.8-8.3)
[2016-10-07 07:16] LABS: CARCINOEMBRYONIC ANTIGEN 2.7 ng/mL (0.0-3.0); THYROID STIMULATING HORMONE 0.31 mIU/mL (0.46-4.68)
--- NOTE | 2016-10-07 08:30 | CP.PCM.PN ---
Subjective - Date & Time of Evaluation Date of Evaluation: 10/07/16 Time of Evaluation: 08:00 - Subjective Subjective: Stable on on 2R. No CP or SOB. V/S noted. RSR PE: Lungs: clear Cor.: S1S2 Abd.: soft Ext. no edema Neuro.: alert Labs noted. Brain MRI noted. Objective - Vital Signs/Intake and Output Vital Signs (last 24 hours): Temp Pulse Resp BP Pulse Ox 97.6 F 69 18 137/73 100 10/07/16 06:00 10/07/16 06:00 10/07/16 06:00 10/07/16 06:00 10/07/16 06:00 Intake and Output: 10/07/16 10/07/16 06:59 18:59 Intake Total 950 Balance 950 - Medications Medications: Current Medications Acetaminophen (Tylenol 325mg Tab) 650 mg PO Q4H PRN PRN Reason: Pain, Mild (1-3) Dexamethasone (Decadron Inj) 4 mg IVP Q12 [facility] Last Admin: 10/06/16 21:32 Dose: 4 mg Diltiazem HCl (Cardizem) 30 mg PO QID [facility] Last Admin: 10/06/16 21:32 Dose: 30 mg Famotidine (Pepcid) 20 mg PO DAILY [facility] Levetiracetam (Keppra) 250 mg PO BID [facility] Last Admin: 10/06/16 17:43 Dose: 250 mg Nicotine (Nicoderm Cq) 1 patch TD DAILY [facility] Last Admin: 10/06/16 09:15 Dose: 1 patch Tiotropium [place] (Spiriva) 18 mcg IH QAM [facility] Last Admin: 10/06/16 09:16 Dose: 18 mcg - Labs Labs: 10/07/16 05:00 10/07/16 05:00 PT 12.6 Seconds (9.9-11.8) H 10/05/16 13:04 INR 1.17 (0.93-1.08) H 10/05/16 13:04 APTT 28.0 Seconds (23.7-30.8) 10/05/16 13:04 Assessment and Plan - Assessment and Plan (Free Text) Plan: Assessment: Weakness, left arm and leg PAF Brain metastases H/O Braest cancer, s/p right mastectomy COPD/Smoker GERD Celiac Disease Colonic Polyps S/P appendectomy Plan: Continue PO cardizem. As per neuro., oncology,radiation oncology Hold A/C for now.
--- NOTE | 2016-10-07 09:01 | PN ---
DATE: 10/07/2016 SUBJECTIVE: The patient is alert and awake. She has no complaints of any headaches, no dizziness. PHYSICAL EXAMINATION: VITAL SIGNS: Temperature is 97.6, pulse of 69, blood pressure is 137/73, respirations 18. GENERAL: The patient comfortable, in no acute distress. HEENT: Anicteric sclerae. Moist mucosa. NECK: No JVD or adenopathy. CARDIAC: S1/S2. No murmurs. No rubs. Regular. RESPIRATORY: Clear to auscultation bilaterally. No wheezes, rales, or rhonchi. Good air entry. ABDOMEN: Bowel sounds are positive, soft, nontender, and nondistended. EXTREMITIES: No edema. Has 1+ pulses. LABORATORIES: White count of 6.2, hemoglobin 10.4. Creatinine is 1.0. MRI of the brain done shows enhancing mass lesions surrounding with vasogenic edema consistent with b rain mets. The largest lesion is in the right parietal lobe. That is 1.3 cm suggestive of hemorrhag ic metastasis. There is a slight right to left midline shift. There is atrophy. EEG is normal. ASSESSMENT: 1. Brain mass, right parietal lobe of 1.3 cm with edema. 2. Cerebral edema with right to left midline shift of 3 mm. 3. Atrial fibrillation, new onset. 4. Smoking. 5. Gait dysfunction. 6. Left arm weakness. 7. History of breast cancer with right mastectomy x 5 years. 8. Colon polyps. PLAN: The patient is currently comfortable. On reviewing the patient's chest x-ray, the x-ray that was recently done by on 09/29/2016 that showed an infiltrate and the x-ray done on 10/05/2016 does not show an infiltrate. I will order a CT of the chest to evaluate further. The patient is be ing followed by Dr. Vincent's group. I will discontinue the patient's IV fluids. The patient is on Keppra at 250 mg b.i.d. I did speak to Dr. Saenz from neurology. The patient is on Decadron 4 mg IV q. 12. The patient is going to continue with Cardizem for rate control. The patient is on Spiriva a s an inhaler. A regular diet has been ordered. She passed her swallowing evaluation. The patient a lso had evaluation by physical therapy. I did speak to the patient's niece yesterday to give her an update on the patient's diagnosis and plan of care. She does have a history of breast cancer and col on polyps. We will continue to follow closely. She is also on a Nicoderm patch because of a history of smoking. Syd Serrano MD cc: [id number] TT: 10/07/2016 09:01:12 Confirmation # [id number] Dictation # [id number] en
--- NOTE | 2016-10-07 09:30 | CP.PCM.CON ---
History of Present Illness - History of Present Illness History of Present Illness: Palliative consult requested by Dr Marilyn Serrano Reason: Goals of care /advance care planning 81 year old female who presented to ED with weakness and confusion. CT of the head showed metastatic disease in the right posterior and parietal lobes, cerebral edema. EKG showed atrial fibrillation. Chest x ray showed no active disease PMHx: COPD, breast cancer s/p R mastectomy, colonoscopy with removal of polyps three years ago Social History: Current smoker,60 pack year. No alcohol or drug use. Lives with her niece Jagdish Mack. Family History: Non contributory. Advance Care Planning:She does not have an Advance Directive Review of Systems:She complains of weakness and vertigo which maker her feel unsteady on her feet. All other systems negative Past Patient History - Infectious Disease Hx of Infectious Diseases: None - Past Social History Smoking Status: Heavy Smoker > 10 Cigarettes Daily - CARDIAC Hx Hypertension: Yes - PULMONARY Hx Chronic Obstructive Pulmonary Disease (COPD): Yes - NEUROLOGICAL Hx Neurological Disorder: No Hx Paralysis: No Hx Transient Ischemic Attacks (TIA): No Hx Vertigo: No - HEENT Hx HEENT Problems: No - RENAL Hx Chronic Kidney Disease: No - ENDOCRINE/METABOLIC Hx Endocrine Disorders: No Hx Diabetes Mellitus Type 1: No - HEMATOLOGICAL/ONCOLOGICAL Hx Cancer: Yes (Breast, mets to brain) - INTEGUMENTARY Hx Dermatological Problems: No - MUSCULOSKELETAL/RHEUMATOLOGICAL Hx Musculoskeletal Disorders: Yes - GASTROINTESTINAL Hx Gastroesophageal Reflux: Yes - GENITOURINARY/GYNECOLOGICAL Hx Genitourinary Disorders: No - PSYCHIATRIC Hx Emotional Abuse: No Hx Physical Abuse: No Hx Substance Use: No - SURGICAL HISTORY Hx Appendectomy: Yes Hx Mastectomy: Yes (right) - ANESTHESIA Hx Anesthesia: Yes Hx Anesthesia Reactions: No Hx Malignant Hyperthermia: No Meds Allergies/Adverse Reactions: Allergies Allergy/AdvReac Type Severity Reaction Status Date / Time gluten Allergy DIARRHEA Verified 10/05/16 13:08 - Medications Medications: Current Medications Acetaminophen (Tylenol 325mg Tab) 650 mg PO Q4H PRN PRN Reason: Pain, Mild (1-3) Dexamethasone (Decadron Inj) 4 mg IVP Q12 [facility] Last Admin: 10/06/16 21:32 Dose: 4 mg Diltiazem HCl (Cardizem) 30 mg PO QID [facility] Last Admin: 10/06/16 21:32 Dose: 30 mg Famotidine (Pepcid) 20 mg PO DAILY [facility] Levetiracetam (Keppra) 250 mg PO BID [facility] Last Admin: 10/06/16 17:43 Dose: 250 mg Nicotine (Nicoderm Cq) 1 patch TD DAILY [facility] Last Admin: 10/06/16 09:15 Dose: 1 patch Tiotropium [place] (Spiriva) 18 mcg IH QAM [facility] Last Admin: 10/06/16 09:16 Dose: 18 mcg Physical Exam - Constitutional Appears: No Acute Distress, Chronically Ill - Head Exam Head Exam: NORMAL INSPECTION - Eye Exam Eye Exam: Normal appearance, PERRL - ENT Exam ENT Exam: Mucous Membranes Moist, Normal Oropharynx - Neck Exam Neck exam: Positive for: Normal Inspection - Respiratory Exam Respiratory Exam: Decreased Breath Sounds, NORMAL BREATHING PATTERN - Cardiovascular Exam Cardiovascular Exam: Irregular Rhythm, +S1, +S2 - GI/Abdominal Exam GI & Abdominal Exam: Normal Bowel Sounds, Soft Additional comments: no tenderness or guarding - Extremities Exam Extremities exam: Positive for: full ROM, normal inspection - Neurological Exam Neurological exam: Alert, Oriented x3 - Psychiatric Exam Psychiatric exam: Normal Mood - Skin Skin Exam: Dry, Warm Additional comments: no rashes or wounds - Additional Findings Additional findings: Palliative performance scale rating 50%. Results - Vital Signs Recent Vital Signs: Last Vital Signs Temp 97.6 F 10/07/16 06:00 Pulse 69 10/07/16 06:00 Resp 18 10/07/16 06:00 BP 137/73 10/07/16 06:00 Pulse Ox 100 10/07/16 06:00 - Labs Result Diagrams: 10/07/16 05:00 10/07/16 05:00 Labs: Laboratory Results - last 24 hr 10/06/16 10/06/16 10/06/16 07:00 12:07 16:07 WBC RBC Hgb Hct MCV MCH MCHC RDW Plt Count MPV Sodium Potassium Chloride Carbon Dioxide Anion Gap BUN Creatinine Est GFR ( Amer) Est GFR (Non-Af Amer) POC Glucose (mg/dL) 89 116 H Random Glucose Calcium Total Bilirubin AST ALT Alkaline Phosphatase Total Protein Albumin Globulin Albumin/Globulin Ratio Carcinoembryonic Ag TSH 3rd Generation Antibody Identification Anti E Antigen Identification E Antigen - NEGATIVE 10/06/16 10/07/16 10/07/16 21:25 05:00 07:16 WBC 6.2 D RBC 3.52 Hgb 10.4 L Hct 31.1 L MCV 88.4 MCH 29.5 MCHC 33.4 RDW 14.8 H Plt Count 382 MPV 9.6 Sodium 135 Potassium 4.3 Chloride 102 Carbon Dioxide 28 Anion Gap 9 L BUN 19 Creatinine 0.8 Est GFR ( Amer) > 60 Est GFR (Non-Af Amer) > 60 POC Glucose (mg/dL) 164 H 135 H Random Glucose 121 H Calcium 8.5 Total Bilirubin 0.3 AST 24 ALT 19 Alkaline Phosphatase 66 Total Protein 5.3 L Albumin 2.5 L Globulin 2.8 Albumin/Globulin Ratio 0.9 L Carcinoembryonic Ag 2.7 TSH 3rd Generation 0.31 L Antibody Identification Antigen Identification Assessment & Plan - Assessment and Plan (Free Text) Assessment: 81 year old female admitted with cerebral edema secondary to brain metastases, new onset atrial fibrillation, deconditioning, gait dysfunction. Patient is pleasant,alert and oriented. She denies pain, nausea, vomiting, shortness of breath. She states her appetite is fair and that she has lia lost some weight over the last few weeks. Patient states that she has a Living Will and explains that her niece Jagdish is her health care proxy. Jagdish is present during our conversation. Patient states that she does not want to be intubated, nor does she want CPR or feeding tube if her condition worsens. Jagdish affirms her statement and will bring a copy of the Advance Directive for our records. POLST explained in detail, questions answered. Will considering completing POLST prior to discharge. Time spent with patient and niece discussion goals of care, advance care planning, 25 minutes. Plan: Will assist with advance care planning - Date & Time Date: 10/07/16 Time: 16:00
--- NOTE | 2016-10-07 10:33 | CP.PCM.CON ---
History of Present Illness - History of Present Illness History of Present Illness: Ms Gabriel is an 81 year old female with newfound multifocal brain metastases. Her past medical history is significant for right breast cancer status post right mastectomy in 2011 followed by an aromatase inhibitor for a couple of years. She was last seen by you in 2014, and was then lost to follow up. She presented to [facility] with confusion. Her niece and her nieces daughter noticed this behavioral change. She also was having left hand weakness. She was also having dizziness and headaches with forgetfulness in the past month. They had called an ambulance, and was brought to the emergency room. A CT of the head on October 05, 2016 revealed a well- circumscribed hyperdense mass in the right parietal lobe measuring 1.2cm with edema. There was a poorly defined mass in the right parietal region with edema. A MRI of the brain on October 06, 2016 revealed multiple enhancing mass lesions suggestive of metastases with edema, the largest was in the right parietal region. She is currently on dexamethasone. She is referred to us for consideration of palliative radiation therapy. Review of Systems - Respiratory Respiratory: Cough, Dyspnea - Musculoskeletal Musculoskeletal: Back Pain - Neurological Neurological: Confusion, Dizziness, Headaches Past Patient History - Infectious Disease Hx of Infectious Diseases: None - Past Social History Smoking Status: Heavy Smoker > 10 Cigarettes Daily Alcohol: None Home Situation {Lives}: With Family - CARDIAC Hx Hypertension: Yes - PULMONARY Hx Chronic Obstructive Pulmonary Disease (COPD): Yes - NEUROLOGICAL Hx Neurological Disorder: No Hx Paralysis: No Hx Transient Ischemic Attacks (TIA): No Hx Vertigo: No - HEENT Hx Cataracts: Yes - RENAL Hx Chronic Kidney Disease: No - ENDOCRINE/METABOLIC Hx Endocrine Disorders: No Hx Diabetes Mellitus Type 1: No - HEMATOLOGICAL/ONCOLOGICAL Hx Cancer: Yes (h/o right breast cancer in 2012 status post mastectomy and AI) - INTEGUMENTARY Hx Dermatological Problems: No - MUSCULOSKELETAL/RHEUMATOLOGICAL Hx Musculoskeletal Disorders: Yes - GASTROINTESTINAL Hx Gastroesophageal Reflux: Yes Other/Comment: celiac disease - GENITOURINARY/GYNECOLOGICAL Hx Genitourinary Disorders: No - PSYCHIATRIC Hx Emotional Abuse: No Hx Physical Abuse: No Hx Substance Use: No - SURGICAL HISTORY Hx Appendectomy: Yes Hx Mastectomy: Yes (right) - ANESTHESIA Hx Anesthesia: Yes Hx Anesthesia Reactions: No Hx Malignant Hyperthermia: No Meds Allergies/Adverse Reactions: Allergies Allergy/AdvReac Type Severity Reaction Status Date / Time gluten Allergy DIARRHEA Verified 10/05/16 13:08 - Medications Medications: Current Medications Acetaminophen (Tylenol 325mg Tab) 650 mg PO Q4H PRN PRN Reason: Pain, Mild (1-3) Dexamethasone (Decadron Inj) 4 mg IVP Q12 [facility] Last Admin: 10/06/16 21:32 Dose: 4 mg Diltiazem HCl (Cardizem) 30 mg PO QID [facility] Last Admin: 10/06/16 21:32 Dose: 30 mg Famotidine (Pepcid) 20 mg PO DAILY [facility] Levetiracetam (Keppra) 250 mg PO BID [facility] Last Admin: 10/06/16 17:43 Dose: 250 mg Nicotine (Nicoderm Cq) 1 patch TD DAILY [facility] Last Admin: 10/06/16 09:15 Dose: 1 patch Tiotropium [place] (Spiriva) 18 mcg IH QAM [facility] Last Admin: 10/06/16 09:16 Dose: 18 mcg Physical Exam - Head Exam Head Exam: NORMAL INSPECTION - Eye Exam Eye Exam: EOMI - ENT Exam ENT Exam: Mucous Membranes Moist - Respiratory Exam Respiratory Exam: Clear to Auscultation Bilateral - Cardiovascular Exam Cardiovascular Exam: REGULAR RHYTHM - GI/Abdominal Exam GI & Abdominal Exam: Normal Bowel Sounds - Neurological Exam Neurological exam: CN II-XII Intact, Oriented x3 Results - Vital Signs Recent Vital Signs: Last Vital Signs Temp 97.6 F 10/07/16 06:00 Pulse 69 10/07/16 06:00 Resp 18 10/07/16 06:00 BP 137/73 10/07/16 06:00 Pulse Ox 100 10/07/16 06:00 - Labs Result Diagrams: 10/07/16 05:00 10/07/16 05:00 Labs: Laboratory Results - last 24 hr 10/06/16 10/06/16 10/06/16 12:07 16:07 21:25 WBC RBC Hgb Hct MCV MCH MCHC RDW Plt Count MPV Sodium Potassium Chloride Carbon Dioxide Anion Gap BUN Creatinine Est GFR ( Amer) Est GFR (Non-Af Amer) POC Glucose (mg/dL) 89 116 H 164 H Random Glucose Calcium Total Bilirubin AST ALT Alkaline Phosphatase Total Protein Albumin Globulin Albumin/Globulin Ratio Carcinoembryonic Ag TSH 3rd Generation 10/07/16 10/07/16 05:00 07:16 WBC 6.2 D RBC 3.52 Hgb 10.4 L Hct 31.1 L MCV 88.4 MCH 29.5 MCHC 33.4 RDW 14.8 H Plt Count 382 MPV 9.6 Sodium 135 Potassium 4.3 Chloride 102 Carbon Dioxide 28 Anion Gap 9 L BUN 19 Creatinine 0.8 Est GFR ( Amer) > 60 Est GFR (Non-Af Amer) > 60 POC Glucose (mg/dL) 135 H Random Glucose 121 H Calcium 8.5 Total Bilirubin 0.3 AST 24 ALT 19 Alkaline Phosphatase 66 Total Protein 5.3 L Albumin 2.5 L Globulin 2.8 Albumin/Globulin Ratio 0.9 L Carcinoembryonic Ag 2.7 TSH 3rd Generation 0.31 L Assessment & Plan - Assessment and Plan (Free Text) Assessment: Ms Gabriel is an 81 year old female with a history of a right breast cancer status post mastectomy followed by an aromatase inhibitor who now presents with multifocal brain metastases. Based on her MRI and CT scan, she would benefit from whole brain radiation. It is unclear whether these brain lesions are from her breast from 2011, or if, in fact, this is a different primary especially considering she is a smoker. We would recommend a metastatic work-up including a CT of the chest, abdomen and pelvis to delineate the extent of her extracranial disease as this may give us information about her primary and obtain tissue pathology. We spoke to the patient about the risks and benefits of radiation therapy. Informed consent was obtained. We will simulate her for radiation, and begin as soon as possible.
[2016-10-07] MEDS: Dexamethasone 4 mg/1 ml IVP SCH ×2 (12:05→21:10)
[2016-10-07] MEDS: Tiotropium 18 mcg Cap For Inhalation IH SCH (12:05)
--- NOTE | 2016-10-07 14:14 | CT ---
PROCEDURE: CT Chest without contrast HISTORY: brain mets COMPARISON: None. TECHNIQUE: Contiguous axial images were obtained through the chest without intravenous contrast enhancement. Sagittal and coronal reconstructions were performed. Radiation dose (DLP): 292 mGy-cm. FINDINGS: LUNGS: Emphysematous changes are seen in the superior segments of the lower lobes bilaterally right greater than left. There is a flat linear shaped consolidation in the right middle lobe along the major fissure with air bronchograms. This could represent chronic fibrosis. An acute pneumonia at is less likely. This does not have the appearance of a lung mass MEDIASTINUM: Unremarkable thoracic aorta. No aneurysm. Normal sized heart. Main pulmonary artery unremarkable. No vascular congestion. No lymphadenopathy. PLEURA: No pleural fluid. No pneumothorax. BONES: No fracture. No destructive lesion. UPPER ABDOMEN: Grossly unremarkable. OTHER FINDINGS: None. IMPRESSION: Emphysema in the superior segments of both lower lobes. Probable bronchiectasis and fibrosis in the right middle lobe adjacent to the hilum. No evidence of a discrete lung mass or adenopathy
--- NOTE | 2016-10-07 18:31 | PN ---
DATE: 10/07/[address] Vincent. SUBJECTIVE: The patient is an 81-year-old female seen sitting up in bed with family members at the [facility], with the patient unsteady on her feet with ambulation with assist only at present, with the p atient now less confused with her heart rate controlled after rapid atrial was diagnosed. She also h ad a CT scan of the head showing metastatic disease. MRI confirming this. The patient is presently denying any pain, with the dizziness improved. PHYSICAL EXAMINATION: VITAL SIGNS: Temperature 97.7, pulse 72, respirations 18, blood pressure 113/48 with a pulse ox of 1 00%. HEENT: Unremarkable. NECK: Supple. HEART: Irregularly irregular with a controlled rate. LUNGS: Clear. ABDOMEN: Soft, nontender. EXTREMITIES: No edema. SKIN: Warm, dry and clear. NEUROLOGIC: Awake, alert, but confused. LABORATORY DATA: The patient's labs were done. White blood cell count of 6.2, hemoglobin 10.4, rick tocrit 31.1, platelet count 382,000 with a chem metabolic panel within normal limits except for a non fasting glucose 135. Total protein 5.3, albumin 2.5, TSH of 0.3 with a CEA value of 2.7. The patient did have a CT scan of the chest, abdomen and pelvis; however, only the chest CT was read without contrast. After conversation with radiology, we will ask for an addendum for the abdomen and pelvis evaluation. The impression was that of emphysema in the superior segments of both lower lobe s, probable bronchiectasis and fibrosis of the right middle lobe adjacent to the hilum, no evidence o f discrete lung mass or adenopathy with the upper abdomen reported as grossly unremarkable. However, there will be an addendum in the near future. After speaking with radiology, we will ask for an ult rasound of the abdomen, attention to the liver with possible gallstones versus other pathologic yap e. These results were reviewed with the patient's family members. ASSESSMENT: Mental status changes secondary to brain metastatic disease, positive MRI and CAT scan o f the head, history of breast cancer, atrial fibrillation new onset, cerebral edema, smoker, hyperten анна, chronic obstructive pulmonary disease. PLAN: After conversation with Dr. Vincent, we will continue present medical regimen, ask for an ultr asound of the abdomen with attention to the liver with her tumor markers to be followed with radiatio n consult with Dr. Leah Nagel recommended. The family members are aware of the findings with the patie nt's comfort paramount at this point, with prognosis for this patient guarded. We will ask for an ad dendum for her CT scan of the abdomen and pelvis as it was done; however, not available to be read. There is also consideration for transfer to remote telemetry as per Dr. Serrano and Dr. Norton, with no anticoagulation at present due to the hemorrhagic change noted on MRI of the brain. Aashish Jimenez MD cc: [id number] TT: 10/07/2016 18:30:21 Confirmation # [id number] Dictation # [id number] [email or web address]
[2016-10-08] MEDS: Dexamethasone 4 mg/1 ml IVP SCH ×2 (09:44→21:11)
[2016-10-08] MEDS: Tiotropium 18 mcg Cap For Inhalation IH SCH (09:45)
--- NOTE | 2016-10-08 14:14 | US ---
HISTORY: attn:Liver, abn CT scan COMPARISON: CT chest, abdomen, and pelvis performed 10/07/16 TECHNIQUE: Sonographic evaluation of the abdomen. FINDINGS: Examination markedly limited due to extensive bowel gas. LIVER: Measures 15 cm in sagittal dimension. Heterogeneous echotexture. Echogenic liver may be seen in setting of hepatic parenchymal disease or fatty infiltration. No focal hepatic mass appreciated. The portal vein appears prominent. The main portal vein appears patent with normal directional flow. No intrahepatic bile duct dilatation. GALLBLADDER: Gallstones. No gallbladder wall thickening. Negative sonographic Thmoason's sign as assessed by the instructor decorating. COMMON BILE DUCT: Measures 3 mm. No stones. No dilatation. PANCREAS: Not well visualized. RIGHT KIDNEY: Measures 8.9 x 5.7 x 4.6 cm. No obstructing calculus or hydronephrosis identified. LEFT KIDNEY: Measures 9.3 x 4.6 x 4.1cm. No obstructing calculus or hydronephrosis identified. Mid/upper pole renal cyst measures approximately 3.4 x 2.6 x 3.9 cm. SPLEEN: Measures approximately 9.0 cm. AORTA: Limited views appear unremarkable. IVC: Limited views appear unremarkable. OTHER FINDINGS: None. IMPRESSION: Examination markedly limited by bowel gas. Hepatomegaly. Heterogeneous echogenic hepatic parenchyma. Echogenic liver may be seen in setting of hepatic parenchymal disease or fatty infiltration. Left renal cyst. Cholelithiasis.
--- NOTE | 2016-10-08 16:11 | PN ---
DATE: 10/08/2016 SUBJECTIVE: The patient is lying on the bed, in no acute distress. Denies having any headache or di zziness. PHYSICAL EXAMINATION: VITAL SIGNS: Her blood pressure is 110/72, heart rate is 62 per minute, breathing at a rate of 16 pe r minute, temperature is 97.3 degrees Fahrenheit. HEENT: Normocephalic, atraumatic. NECK: Supple. There are no carotid bruits. LUNGS: Clear. CARDIOVASCULAR: S1, S2 audible. No murmurs. ABDOMEN: Soft, nontender, bowel sounds present. NEUROLOGIC EXAMINATION: MENTAL STATUS: The patient is awake, alert, oriented to time, place, person. Speech is fluent. Nam ing and repetition normal. Memory and cognition are intact. CRANIAL NERVE EXAMINATION: Pupils are 3 mm bilaterally reactive to light. Visual ortiz are full. Extraocular movements are intact. There is no facial asymmetry. Tongue is midline. MOTOR EXAMINATION: Tone is normal. Power is 5/5 bilaterally in all extremities. Plantars downgoing bilaterally. [id number] shows no dysmetria. IMPRESSION: 1. New onset of focal seizure with underlying brain metastasis. 2. History of breast cancer. RECOMMENDATIONS: 1. The patient had an electroencephalogram, which is normal. The patient is on Keppra 250 mg twice a day and tolerating it very well. She had no further seizure. 2. The patient is still on Decadron 4 mg every 12 hours. Will continue her on Decadron at current d ose and possibly then in a day or two will decrease it to 2 mg every 12 hours and then after another 3-4 days, we will consider discontinuing it. 3. Please continue supportive care and other treatment. The patient is going for radiation therapy soon. Thank you for the opportunity to participate in the care of this patient. Doug Saenz MD cc: [id number] TT: 10/08/2016 16:11:15 Confirmation # [id number] Dictation # [id number] [email or web address]
[2016-10-09] MEDS ORDERED: Albuterol-Ipratrop 3 mg / 0.5 (3 ml) UD IH STA (00:21)
--- NOTE | 2016-10-09 00:29 | CP.PCM.PN ---
Subjective - Date & Time of Evaluation Date of Evaluation: 10/09/16 Time of Evaluation: 00:28 - Subjective Subjective: called by nurse pt has mobitz type 2 on the monitor , pt denies cp states she just feels tired . pt has metastatic breast ca.also pt has hx of copd ,pulse ox is 95%.no sob. Objective - Vital Signs/Intake and Output Vital Signs (last 24 hours): Temp Pulse Resp BP Pulse Ox 97.8 F 74 18 112/69 96 10/08/16 17:30 10/08/16 22:00 10/08/16 17:30 10/08/16 21:11 10/08/16 06:00 Intake and Output: 10/08/16 10/09/16 18:59 06:59 Intake Total 480 Output Total 300 Balance 180 - Medications Medications: Current Medications Acetaminophen (Tylenol 325mg Tab) 650 mg PO Q4H PRN PRN Reason: Pain, Mild (1-3) Last Admin: 10/08/16 22:25 Dose: 650 mg Dexamethasone (Decadron Inj) 4 mg IVP Q12 [facility] Last Admin: 10/08/16 21:11 Dose: 4 mg Diltiazem HCl (Cardizem) 30 mg PO QID [facility] Last Admin: 10/08/16 21:11 Dose: 30 mg Famotidine (Pepcid) 20 mg PO DAILY [facility] Last Admin: 10/08/16 09:44 Dose: 20 mg Levetiracetam (Keppra) 250 mg PO BID [facility] Last Admin: 10/08/16 17:11 Dose: 250 mg Nicotine (Nicoderm Cq) 1 patch TD DAILY [facility] Last Admin: 10/08/16 09:45 Dose: 1 patch Tiotropium [place] (Spiriva) 18 mcg IH QAM [facility] Last Admin: 10/08/16 09:45 Dose: 18 mcg - Labs Labs: 10/07/16 05:00 10/07/16 05:00 PT 12.6 Seconds (9.9-11.8) H 10/05/16 13:04 INR 1.17 (0.93-1.08) H 10/05/16 13:04 APTT 28.0 Seconds (23.7-30.8) 10/05/16 13:04 - Constitutional Appears: No Acute Distress - Head Exam Head Exam: NORMOCEPHALIC - Eye Exam Eye Exam: Normal appearance Pupil Exam: PERRL - ENT Exam ENT Exam: Mucous Membranes Moist - Neck Exam Neck Exam: Full ROM - Respiratory Exam Respiratory Exam: Decreased Breath Sounds - Cardiovascular Exam Cardiovascular Exam: Bradycardia, RRR, +S1, +S2 - GI/Abdominal Exam GI & Abdominal Exam: Soft, Normal Bowel Sounds - Neurological Exam Neurological Exam: Alert, Awake, Oriented x3 - Skin Skin Exam: Dry, Warm Assessment and Plan - Assessment and Plan (Free Text) Assessment: cardiac arrythmia. copd. mtestatic breast ca. Plan: stat ekg, cbc bmp ca, mg cardiac iso . duoneb x1.
[2016-10-09 00:54] LABS: HEMATOCRIT 31.7 % (36.0-48.0); MEAN CELL VOLUME 88.1 fL (80.0-105.0); MEAN CORPUSCULAR HGB CONC 34.1 g/dl (31.0-37.0); MEAN PLATELET VOLUME 9.3 fl (7.0-11.0); RED CELL DISTRIBUTION WIDTH 14.8 % (11.5-14.5); WHITE BLOOD COUNT 12.2 10^3/ul (4.5-11.0)
[2016-10-09 01:00] LABS: BLOOD UREA NITROGEN 26 mg/dL (7-21); CALCIUM 8.9 mg/dL (8.4-10.5); CARBON DIOXIDE 29 mmol/L (21-33); CHLORIDE 98 mmol/L (98-107); GFR AFRICAN-AMERICAN > 60; GLUCOSE,RANDOM 130 mg/dL (70-110); MAGNESIUM 1.9 mg/dL (1.7-2.2); POTASSIUM 4.4 mmol/L (3.6-5.0); SODIUM 131 mmol/L (132-148)
[2016-10-09 01:13] LABS: TROPONIN I < 0.01 ng/mL
--- NOTE | 2016-10-09 07:45 | CP.PCM.PN ---
Subjective - Date & Time of Evaluation Date of Evaluation: 10/09/16 Time of Evaluation: 08:00 - Subjective Subjective: Stable on on 2R. No CP or SOB. Sinus with Mobitz 1 2nd degree AVB noted on tel. V/S noted. RSR, episode Mobitz 1 2nd degree AVB PE: Lungs: clear Cor.: S1S2 Abd.: soft Ext. no edema Neuro.: alert Labs noted. Trop < 0.01 Brain MRI noted. Abd. U/S noted. CT Chest noted. Objective - Vital Signs/Intake and Output Vital Signs (last 24 hours): Temp Pulse Resp BP Pulse Ox 97.7 F 67 20 139/54 L 98 10/09/16 06:00 10/09/16 06:00 10/09/16 06:00 10/09/16 06:00 10/09/16 06:00 Intake and Output: 10/09/16 10/09/16 06:59 18:59 Intake Total 0 Output Total 550 Balance -550 - Medications Medications: Current Medications Acetaminophen (Tylenol 325mg Tab) 650 mg PO Q4H PRN PRN Reason: Pain, Mild (1-3) Last Admin: 10/08/16 22:25 Dose: 650 mg Dexamethasone (Decadron Inj) 4 mg IVP Q12 [facility] Last Admin: 10/08/16 21:11 Dose: 4 mg Diltiazem HCl (Cardizem) 30 mg PO TID [facility] Famotidine (Pepcid) 20 mg PO DAILY [facility] Last Admin: 10/08/16 09:44 Dose: 20 mg Levetiracetam (Keppra) 250 mg PO BID [facility] Last Admin: 10/08/16 17:11 Dose: 250 mg Nicotine (Nicoderm Cq) 1 patch TD DAILY [facility] Last Admin: 10/08/16 09:45 Dose: 1 patch Tiotropium [place] (Spiriva) 18 mcg IH QAM [facility] Last Admin: 10/08/16 09:45 Dose: 18 mcg - Labs Labs: 10/09/16 00:40 10/09/16 00:40 PT 12.6 Seconds (9.9-11.8) H 10/05/16 13:04 INR 1.17 (0.93-1.08) H 10/05/16 13:04 APTT 28.0 Seconds (23.7-30.8) 10/05/16 13:04 Assessment and Plan - Assessment and Plan (Free Text) Plan: Assessment: Mobitz 1 2nd degree AVB Weakness, left arm and leg PAF Brain metastases H/O Breast cancer, s/p right mastectomy COPD/Smoker GERD Celiac Disease Colonic Polyps S/P appendectomy Plan: Reduce PO cardizem to 30 BID As per neuro., oncology, radiation oncology Hold A/C for now. OK > Remote tel.
[2016-10-09] MEDS: Dexamethasone 4 mg/1 ml IVP SCH (09:58)
[2016-10-09] MEDS: Tiotropium 18 mcg Cap For Inhalation IH SCH (09:58)
--- NOTE | 2016-10-09 10:04 | CARD ---
APPROVED REPORT EKG Measurement Heart [id number] MA 272P [id number] <Conclusion> Sinus bradycardia with Mobitz1 2nd degree AVB, new RBBB STTW changes, new Prolonged QTc
--- NOTE | 2016-10-09 11:06 | PN ---
DATE: 10/09/2016 SUBJECTIVE: The patient is lying on the bed, in no acute distress. Denies having any headache or di zziness. PHYSICAL EXAMINATION: VITAL SIGNS: Her blood pressure is 126/70, heart rate is 67 per minute, breathing at a rate of 16 pe r minute, temperature is 97.7 degrees Fahrenheit. HEENT: Normocephalic, atraumatic. NECK: Supple. There are no carotid bruits. LUNGS: Clear. CARDIOVASCULAR: S1, S2 audible. No murmurs. ABDOMEN: Soft, nontender, bowel sounds are present. NEUROLOGIC EXAMINATION: MENTAL STATUS: The patient is awake, alert, oriented to time, place, person. Speech is fluent. Nam ing and repetition is normal. Memory and cognition are intact. CRANIAL NERVE EXAMINATION: Pupils are 3 mm bilaterally reactive to light. Visual ortiz are full. Extraocular movements are intact. There is no facial asymmetry. Palate is upgoing bilaterally and t ongue is midline. MOTOR EXAMINATION: Tone is normal. Power is 5/5 bilaterally in all extremities. Reflexes +1 and sy mmetrical. Plantars downgoing bilaterally. GAIT: Deferred at the moment. LABORATORY DATA: Reviewed, shows WBC of 12.2, hemoglobin 10.8, hematocrit of 31.7 and platelets of 3 68. Sodium is 131, potassium 4.4, chloride 98, carbon dioxide 29, BUN of 26, creatinine 0.8, and glu cose of 130. IMPRESSION: 1. New onset of focal seizure with underlying brain metastasis. 2. History of breast cancer. RECOMMENDATIONS: 1. The patient had no further focal seizure. 2. The patient to be continued on Keppra 250 mg twice a day. 3. The dose of Decadron to be decreased to 3 mg q. 12 hours. 4. The patient to be started on radiation therapy. 5. Please continue supportive care and other treatment. Thank you for the opportunity to participate in the care of this patient. Doug Saenz MD cc: [id number] TT: 10/09/2016 11:06:16 Confirmation # [id number] Dictation # [id number] elias
--- NOTE | 2016-10-09 12:45 | CON ---
DATE: 10/09/2016 275, bed 1 The patient was admitted on 10/05, coming into the hospital complaining of weakness. She was subsequently found to have brain metastasis. She has a history of COPD and breast cancer. There has been a previous history of mastectomy. The patient continues to smoke approximately a half a pack of cigarettes a day. She has smoked heavier in the past over 60 years. She is 81 years of age. She has been followed by Dr. Buckner as an outpatient and has been given anticholinergic, Spiriva, which is appropriate, but additional medications for the asthmatic portion of the COPD have been withheld. The patient came via the Emergency Room and evaluated and treated. She was more short of breath on the floor and pulmonary evaluation was requested. PAST MEDICAL HISTORY: Includes hypertension, COPD, GERD, celiac disease, peripheral edema and colon polyps. ALLERGIES: GLUTEN. She takes Spiriva, folic acid and magnesium at home. SOCIAL HISTORY: Smoker as described above, half pack a day at present. Smoked for over 60 years. Lives with her niece. FAMILY HISTORY: Coronary artery disease and congestive heart failure, COPD, smoker's cough. REVIEW OF SYSTEMS: Shortness of breath, some cough. No chest pains, hemoptysis or pleurisy. No abdominal pains, vomiting, no urinary frequency. No memory loss , no rashes. All other systems negative. Have been discussed with the patient and her niece. No additional abnormalities are noted. PHYSICAL EXAMINATION: GENERAL: She is comfortable, in no acute respiratory distress. The patient is upright in bed, feeling stronger. She has responded well to the inhalation treatments received. VITAL SIGNS: Temperature 98.6, pulse 80, respiratory rate 18, blood pressure 130/70, O2 sat 98% on supplemental oxygen. HEENT: Normocephalic, atraumatic. Eyes, PERRLA, EOMs full, conjunctivae pink. NECK: Supple, no JVD, no bruit, no thyromegaly or mass. HEART: Regular rhythm, S1, S2. No murmur, gallop or rub. CHEST: Scattered wheezing throughout both lung ortiz. Minimal rhonchi noted as well. ABDOMEN: Soft, bowel sounds normoactive without mass, guarding, rebound or organomegaly. EXTREMITIES: Reveal no clubbing, cyanosis or edema. There is no Homans sign. NEUROLOGIC: Evaluation shows normal motor, sensory and coordination. Babinski downgoing. Deep tendon reflexes are hyperactive. SKIN: Shows no rash or excoriation. LYMPHATICS: Lymphadenopathy is not present in the supraclavicular notch nor in the cervical, inguinal or axillary areas. CAT scan of the Brain shows metastatic disease of the frontal and parietal lobes. CAT scan of the chest shows bronchiectasis, fibrosis, hyperinflation, no acute infiltrates. EKG showed atrial fibrillation with rapid ventricular rate. LABORATORY STUDIES: At the present time show a white count of 12, hemoglobin of 10, hematocrit of 31, platelet count 368,000. Coags: PT 12.6, INR 1.17. 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 Procalcitonin less than 0.05. CLINICAL IMPRESSION: 1. Chronic obstructive pulmonary disease. 2. Emphysema. 3. Panacinar emphysema. 4. Asthmatic component, which may be reversible of the chronic obstructive pulmonary disease. 5. Bronchiectasis. 6. Pulmonary fibrosis. 7. Brain metastasis. 8. Status post mastectomy for breast cancer. 9. Past and present history of tobacco. PLAN: The patient will need further bronchodilators. She will need LABA, Inocencia and inhaled corticosteroids upon discharge. The Spiriva was fine, but insufficient for her status. She will definitely need to stop smoking. This has been discussed with the patient and her daughter. She will need followup in the office to make sure that the medications are adjusted appropriate for outpatient as she is getting hand nebulizer treatments in the hospital now. She probably will not need this and regular HFA or Diskus devices will probably be sufficient upon discharge. We will follow closely with you. Wild Thomason MD cc: [id number] TT: 10/09/2016 12:44:55 Confirmation # [id number] Dictation # [id number] [id number]
[2016-10-09] MEDS: Dexamethasone 3 MG in Sodium Chloride 0.9% 50 ML IV SCH (22:01)
--- NOTE | 2016-10-10 00:10 | PN ---
DATE: 10/08/2016 SUBJECTIVE: The patient is alert, awake. She has no complaints of headache, no nausea, no vomiting. She developed Mobitz type 2 block on the monitor. She is disoriented to time. She has history of breast cancer with new brain mets. Evaluated by radiation/onc for initiation of radiation. Cardiolo gy, Dr. Norton following. REVIEW OF SYSTEMS: As per HPI. Rest of 12-point review of systems reviewed and negative. PHYSICAL EXAMINATION: GENERAL: Comfortable in bed, in no acute distress. VITAL SIGNS: Temperature 98.7, heart rate 60 per minute, blood pressure 130/80, respiratory rate 20 per minute, oxygen saturation 98% room air. HEENT: Normal. NECK: No lymphadenopathy. CHEST: Air entry present, equal bilateral. No added sound. CARDIOVASCULAR: S1, S2 normal. No murmur, no gallop. ABDOMEN: Soft, nontender, no hepatosplenomegaly. EXTREMITIES: No edema. CENTRAL NERVOUS SYSTEM: Alert, not oriented to time. Oriented to place, person. No focal sensory o r motor deficit. Gait unsteady. SKIN: No petechia, no rash. LABORATORY DATA: White count 6.2, hemoglobin 10.4, platelet count 382. Sodium 131, potassium 4.1, c reatinine 0.8. MEDICATIONS: Tylenol 650 q.6 hours p.r.n., dexamethasone 3 mg q.12 hours IV, Cardizem 30 mg p.o. b.i .d., Pepcid 20 mg p.o. daily, Keppra 250 mg p.o. b.i.d., nicotine patch, Spiriva 18 mcg inhalation q. a.m. ASSESSMENT AND PLAN: 1. Metastatic breast cancer, mets to the brain; evaluated by radiation oncology for initiation of ra diation. She is currently on IV steroids. 2. Atrial fibrillation, Mobitz type 2 block. Cardiology, Dr. Norton following. 3. Gait dysfunction, bedside physical therapy. 4. Stage IV breast cancer with metastatic lesion to the brain. Family wants comfort care, palliativ e care services consulted. 5. Oral intake poor. Radha Hancock MD cc: [id number] TT: 10/09/2016 23:01:27 Confirmation # [id number] Dictation # [id number] mn 10/09/2016 23:09:43
--- NOTE | 2016-10-10 00:16 | PN ---
DATE: 10/09/2016 SUBJECTIVE: The patient is comfortable in bed, in no acute distress. Denies any chest pain. No elayne rtness of breath. She has stage IV breast cancer with metastatic lesion to the brain, developed Mobi tz type 1 second degree AV block on the monitor last night. Cardiology, Dr. Norton following. Decre ased the Cardizem to 30 b.i.d. Oral intake is poor, gait is unsteady. No fever, no chest pain. No cough with expectoration. REVIEW OF SYSTEMS: As per HPI. Rest of 12-point review of systems reviewed and negative. PHYSICAL EXAMINATION: VITAL SIGNS: Heart rate is 67 per minute, respiratory rate 20 per minute, blood pressure 139/54, pul se ox is 98% on room air. HEENT: Normal. NECK: No lymphadenopathy. CHEST: Air entry present, equal bilateral. No added sound. CARDIOVASCULAR: S1, S2 normal. No murmur, no gallop. ABDOMEN: Soft, nontender, no hepatosplenomegaly. EXTREMITIES: No edema. CENTRAL NERVOUS SYSTEM: Oriented to place, not oriented to time. No focal sensory or motor deficit. Gait unsteady. SKIN: No petechia, no rash. MEDICATIONS: Tylenol 650 q.4 hours p.r.n., dexamethasone 3 mg q.12 hours, Cardizem 30 mg p.o. b.i.d. , Pepcid 20 mg p.o. daily, Keppra 250 mg p.o. b.i.d., Nicoderm patch, Spiriva. ASSESSMENT: 1. Stage IV breast cancer, metastatic lesion to brain. 2. Atrial fibrillation. 3. Mobitz type 1 second degree AV block. 4. Chronic obstructive pulmonary disease. 5. Anemia. PLAN: Radiation oncology consult, appreciated Dr. Nagel for initiation of brain mets. Family wants co mfort care. Consultation and palliative services on board. Cardizem decreased by Dr. Norton to 30 m g p.o. b.i.d., will continue Keppra. Continue IV steroids. Mild anemia. Hemoglobin and hematocrit stable. Radha Hancock MD cc: [id number] TT: 10/09/2016 23:17:28 Confirmation # [id number] Dictation # [id number] mn 10/09/2016 23:14:24
[2016-10-10 00:48] LABS: URINE BILIRUBIN NEGATIVE (NEGATIVE); URINE BLOOD NEGATIVE (NEGATIVE); URINE GLUCOSE (UA) NEGATIVE (NEGATIVE); URINE KETONE NEGATIVE (NEGATIVE); URINE LEUKOCYTE ESTERASE NEGATIVE Leu/uL (NEGATIVE); URINE PROTEIN NEGATIVE mg/dL (<30 mg/dL); URINE UROBILINOGEN 0.2 E.U./dL (<1 E.U./dL)
[2016-10-10 00:50] LABS: URINE APPEARANCE CLEAR (CLEAR); URINE COLOR YELLOW (YELLOW)
[2016-10-10 06:12] VITALS: O2SAT 100
[2016-10-10] MEDS ORDERED: Levalbuterol 0.63 MG/3 ML Inhal Soln UD IH PRN (06:55)
[2016-10-10] MEDS: Levalbuterol 0.63 MG/3 ML Inhal Soln UD IH SCH ×2 (07:56→13:13)
[2016-10-10] MEDS ORDERED: Budesonide 0.5 mg/2 ml Inhal Susp UD IH SCH (08:00)
--- NOTE | 2016-10-10 09:09 | PN ---
DATE: 10/10/2016 SUBJECTIVE: The patient appears comfortable this morning. She is not short of breath at rest. PHYSICAL EXAMINATION: VITAL SIGNS: Temperature is 97.4, pulse 66, respirations 18, blood pressure 140 /76. Oxygen saturation on nasal cannula is 100%. HEENT: Normocephalic, atraumatic. No JVD. CARDIOVASCULAR: Systolic ejection murmur at the lower left sternal border. No S3 gallop. LUNGS: Decreased breath sounds at the bases. Mild bilateral rhonchi. No wheezing. EXTREMITIES: No clubbing, cyanosis, or edema. Calves are nontender to palpation. GASTROINTESTINAL: Abdomen is soft, nontender, nondistended. Bowel sounds are positive. SKIN: No acute rash. NEUROLOGIC: Limited at the present time. IMPRESSION: 1. Chronic obstructive pulmonary disease. 2. Bronchiectasis. 3. Mild pulmonary fibrosis. 4. Mild bronchospasm. 5. Advanced metastatic breast cancer with metastasis to the brain. 6. Atrial fibrillation. PLAN: The patient appears comfortable this morning. She is not short of breath at rest. She does state to feeling better overall. On physical exam, there is mild bronchospasm noted. In addition, there is no significant alveolar -arterial gradient. Oxygen saturation on nasal cannula is 100%. I did review the notes by Dr. Thomason -- my partner. At the present time, the patient is only on Spiriva. I will add Xopenex nebulizer treatments (given the atrial fibrillation), as well as inhaled steroids for now. The patient does have an extensive smoking history. Input by oncology and radiation oncology are noted. Input by cardiology is also noted. Clinical status of the patient is improved -- compared to the initial presentation. However, the overall status/ prognosis of this patient remains poor. I will discuss the above with Dr. Serrano. Juan Pablo Banda MD cc: [id number] TT: 10/10/2016 09:08:50 Confirmation # [id number] Dictation # [id number] en MTDD
--- NOTE | 2016-10-10 11:02 | PN ---
DATE: 10/10/2016 The patient is lying on the bed in no acute distress. Denies having any headache or dizziness. Moise es having any shaking of the arm or leg. PHYSICAL EXAMINATION: VITAL SIGNS: Her blood pressure is 140/76, heart rate is 66 per minute, breathing at a rate of 16 pe r minute, temperature is 97.4 degrees Fahrenheit. HEENT: Normocephalic, atraumatic. NECK: Supple. There are no carotid bruits. LUNGS: Clear. CARDIOVASCULAR: S1, S2 audible. No murmurs. ABDOMEN: Soft, nontender. Bowel sounds present. NEUROLOGIC EXAMINATION: MENTAL STATUS: The patient is awake, alert, oriented to time, place, person. Speech is fluent. Nam ing and repetition are normal. Memory and cognition are intact. CRANIAL NERVES: Pupils are 4 mm bilaterally and reactive to light. Visual ortiz are full. Extraoc ular movements are intact. There is no facial asymmetry. Palate is upgoing bilaterally and tongue i s midline. MOTOR: Tone is normal. Power is 4-5/5 bilaterally in all extremities. Plantars are downgoing bilat erally. CEREBELLAR: Ndufgn-vu-ssea shows no dysmetria. Gait is deferred at the moment. IMPRESSION: 1. New onset focal seizures with underlying brain metastasis. 2. History of breast cancer. RECOMMENDATIONS: 1. At this time, I will further decrease the dose of Decadron to 2 mg every 12 hours. 2. The patient to be continued on Keppra 250 mg twice a day. 3. The patient to have radiation therapy. 4. The patient may benefit from subacute rehab. Thank you for the opportunity to participate in the care of this patient. Doug Saenz MD cc: [id number] TT: 10/10/2016 11:02:04 Confirmation # [id number] Dictation # [id number] daja
[2016-10-10 12:29] VITALS: BP 133/57; RESP 19; TEMP 97.1
[2016-10-10] MEDS: Tiotropium 18 mcg Cap For Inhalation IH SCH (12:53)
[2016-10-10] MEDS: Dexamethasone 3 MG in Sodium Chloride 0.9% 50 ML IV SCH (14:34)
--- NOTE | 2016-10-10 14:53 | DS ---
SUBJECTIVE: This is an 81-year-old female who had come into the hospital because of left arm weaknes s. She was found to have metastatic lesions in the brain. She has been evaluated by oncology as wel l as radiation oncology. She is getting physical therapy. I will see if she qualifies for [facility] emergency department unit for rehab. She has no complaints of any chest pain, no shortness of breath, no headach es or dizziness. The patient's Cardizem has been decreased since she developed heart block. The pat iepatrick has no complaints of any headaches or dizziness, no nausea, no vomiting. PHYSICAL EXAMINATION: VITAL SIGNS: Temperature is 97.4, pulse of 66, blood pressure 140/76, respirations 20, O2 saturatio n 100%. GENERAL: The patient comfortable, in no acute distress. HEENT: Anicteric sclerae. Moist mucosa. NECK: No JVD or adenopathy. CARDIAC: S1/S2. No murmurs. No rubs. Regular. RESPIRATORY: Clear to auscultation bilaterally. No wheezes, rales, or rhonchi. Good air entry. ABDOMEN: Bowel sounds are positive, soft, nontender, and nondistended. EXTREMITIES: No edema. Has 1+ pulses. ASSESSMENT: 1. Metastatic lesions to the brain, unknown primary. 2. Atrial fibrillation. 3. Second degree AV block. 4. Chronic obstructive pulmonary disease. 5. Anemia. PLAN: The patient is currently comfortable. She is on Cardizem. She is going to continue on dexamet hasone. The patient is on Keppra for seizure prophylaxis. She is on Spiriva as an inhaler. She is on a regular diet. The patient has been seen by physical therapy. They suggested transitional care unit or subacute rehabilitation. We will see if she qualifies. CONDITION: Stable. ACTIVITIES: Increase as tolerated. Sdy Serrano MD cc: [id number] TT: 10/10/2016 14:52:58 elias
[2016-10-10 15:38] VITALS: PULSE 83
[2016-10-10] MEDS ORDERED: Dexamethasone 4 mg/1 ml IVP SCH (22:00)
== END 2016-10-10 16:31 | DRG 54 ==
LOC: ED 12:45 → ERH 14:16 → 2RSO 21:34
PROVIDERS: ADMIT Internal Medicine Nephrology; ATTEND Internal Medicine Nephrology
PROC: DW011ZZ Beam Radiation of Head and Neck using Photons 1 - 10 MeV (ICD-10-PCS; principal; 2016-10-07)
DX: C79.31 Secondary malignant neoplasm of brain (principal); G93.6 Cerebral edema; G40.89 Other seizures; I44.1 Atrioventricular block, second degree; I48.0 Paroxysmal atrial fibrillation; J44.9 Chronic obstructive pulmonary disease, unspecified; K90.0 Celiac disease; I10 Essential (primary) hypertension; J84.10 Pulmonary fibrosis, unspecified; F17.210 Nicotine dependence, cigarettes, uncomplicated; K21.9 Gastro-esophageal reflux disease without esophagitis; D64.9 Anemia, unspecified; K63.5 Polyp of colon; R26.81 Unsteadiness on feet; J47.9 Bronchiectasis, uncomplicated; J45.909 Unspecified asthma, uncomplicated; Z85.3 Personal history of malignant neoplasm of breast; Z90.11 Acquired absence of right breast and nipple

== ENCOUNTER 2016-10-10 16:31 | Inpatient (IN) | payer OTHER, BC ==
[2016-10-10] MEDS ORDERED: Levalbuterol 0.63 MG/3 ML Inhal Soln UD IH PRN (18:21)
[2016-10-10] MEDS: Dexamethasone 4 mg/1 ml IVP SCH (22:31)
[2016-10-11 00:34] VITALS: BMI 18.0
[2016-10-11] MEDS: Levalbuterol 0.63 MG/3 ML Inhal Soln UD IH SCH ×4 (01:51→20:03)
[2016-10-11] MEDS: Budesonide 0.5 mg/2 ml Inhal Susp UD IH SCH ×2 (07:36→20:03)
[2016-10-11] MEDS: Dexamethasone 4 mg/1 ml IVP SCH (09:39)
[2016-10-11] MEDS: Tiotropium 18 mcg Cap For Inhalation IH SCH (09:42)
--- NOTE | 2016-10-11 10:17 | PN ---
DATE: 10/11/2016 DATE: 10/11/2016 SUBJECTIVE: This is an 81-year-old female who was coming to the transitional care unit for physical therapy because gait dysfunction. She was recently diagnosed with metastatic disease to her brain. The primary is unknown. The patient is getting radiation therapy. She has no complaints of any ches t pain or shortness of breath, no headaches. Initial H and P reviewed, and I do agree with it. PHYSICAL EXAMINATION: VITAL SIGNS: Temperature is 97.4, pulse of 61. Blood pressure is 115/74, respirations 18. GENERAL: The patient is comfortable, in no acute distress. HEENT: Anicteric sclerae. Moist mucosa. NECK: No JVD or adenopathy. CARDIAC: S1/S2. No murmurs. No rubs. Regular. RESPIRATORY: Clear to auscultation bilaterally. No wheezes, rales, or rhonchi. Good air entry. ABDOMEN: Bowel sounds are positive, soft, nontender, and nondistended. EXTREMITIES: No edema. Has 1+ pulses. NEUROLOGIC: There is 4/5 power in the left arm. ASSESSMENT: 1. Metastatic lesions to the brain, unknown primary. 2. Atrial fibrillation. 3. Second-degree atrioventricular block. 4. Chronic obstructive pulmonary disease. 5. Anemia. 6. Smoking. PLAN: The patient is currently on Keppra for seizure prophylaxis. She is on a nicotine patch for sm oking. She is getting Decadron IV. She is getting Spiriva as an inhaler. She is on Cardizem. She is going to continue to follow with Dr. Saenz from neurology. She is also going to see Dr. Norton. S he is not on any anticoagulation. I will await further input from the specialists. Syd Serrano MD cc: [id number] TT: 10/11/2016 10:16:28 Confirmation # [id number] Dictation # [id number] matthew
--- NOTE | 2016-10-11 20:38 | CON ---
DATE: 10/11/2016 REASON FOR CONSULTATION: Brain metastasis. HISTORY OF PRESENT ILLNESS: The patient is an 81-year-old female who has been asked for evaluation f or brain metastasis and focal seizure. The patient was admitted into the hospital initially with sha maranda of the left side and weakness of the left arm. She was diagnosed to have brain metastasis with focal seizures. The patient is transferred to a subacute rehabilitation for reconditioning. The pat ient had no further seizure. She has been undergoing radiation therapy as well as on steroids. She is taking Keppra and had no further seizures. REVIEW OF SYSTEMS: Denies any headache, dizziness, chest pain, shortness of breath, abdominal pain, constipation, diarrhea, dysuria, pyuria, cough, or sputum production. PAST MEDICAL HISTORY: Includes hypertension and COPD. MEDICATIONS: Include Cardizem, Decadron 2 mg IV q. 12 hours, Keppra 250 mg b.i.d., Nicoderm patch, P epcid, Pulmicort, Spiriva, Tylenol, Xopenex. ALLERGIES: GLUTEN. SOCIAL HISTORY: Denies smoking, use of alcohol, or illicit drugs. FAMILY HISTORY: Reviewed and noncontributory to the case. PHYSICAL EXAMINATION: GENERAL: The patient is an elderly female, lying on the bed, in no acute distress. VITAL SIGNS: Her blood pressure is 124/64, heart rate is 66 per minute, breathing at a rate of 16 pe r minute, temperature is 97.6 degrees Fahrenheit. HEENT: Normocephalic, atraumatic. NECK: Supple. There are no carotid bruits. LUNGS: Clear. CARDIOVASCULAR: S1, S2 audible. No murmurs. ABDOMEN: Soft, nontender, bowel sounds present. NEUROLOGIC EXAMINATION: MENTAL STATUS: The patient is awake, alert, oriented to time, place, person. Speech is fluent. Nam ing and repetition normal. Memory and cognition are intact. CRANIAL NERVES: Pupils are 4 mm bilaterally, reactive to light. Visual ortiz are full. Extraocula r movements are intact. There is no facial asymmetry. Palate is upgoing bilaterally and tongue is m idline. MOTOR: Tone is normal. Power is 5/5 bilaterally in all extremities. Reflexes +2 and symmetrical. Plantars downgoing bilaterally. GAIT: Deferred at the moment. IMPRESSION: 1. Status post focal seizure with brain metastasis. RECOMMENDATIONS: 1. At this time, I will switch her Decadron to oral. The patient will take 2 mg twice a day for anot her 2 days, and then it is to be stopped. 2. The patient to be continued on Keppra 250 mg twice a day. 3. The patient had no further seizure. 4. The patient is undergoing radiation therapy. 5. Please continue supportive care and other treatment. Thank you for the opportunity to participate in the care of this patient. Doug Saenz MD cc: [id number] TT: 10/11/2016 20:38:12 Confirmation # [id number] Dictation # [id number] ln
[2016-10-12] MEDS: Levalbuterol 0.63 MG/3 ML Inhal Soln UD IH SCH ×4 (01:12→20:04)
--- NOTE | 2016-10-12 01:43 | CON ---
DATE: 10/12/2016 The patient is in room 322, [facility], transferred from the acute side for deconditioning. REASON FOR CONSULTATION: This is an 81-year-old female with a background history of breast cancer, n ow presenting with altered mental status and findings of multiple brain metastases for which she has been started on palliative radiation. HISTORY OF PRESENT ILLNESS: This is an 81-year-old female with brain metastasis and focal seizures. She was admitted to the hospital initially with shaking on the left side, weakness of the left arm, was found to have brain metastasis with focal seizures and she has been started on palliative radiati on and Decadron with transfer to [facility] for deconditioning. The patient has had no further seizures an d she is undergoing radiation as well with some improvement in her symptoms and more importantly, in her gait stability. The patient no longer has any headaches, dizziness, chest pain, shortness of israel ath, abdominal pain, constipation, diarrhea, dysuria, cough or chills or fever. PAST MEDICAL HISTORY: Significant for hypertension, COPD, history of breast CA diagnosed in 2011, st atus post mastectomy on aromatase inhibitors for 5 years, stopped last year. Now, admitted with the aforementioned complaints. MEDICATIONS: Include Cardizem, Decadron IV q.12 hours, Keppra 250 b.i.d., Nicoderm patch, Pepcid, Pu lmicort, Spiriva, Tylenol and Xopenex. ALLERGIES: HE HAS ALLERGIES TO GLUTEN. SOCIAL HISTORY: Denies any smoking, use of alcohol or illicit drugs. FAMILY HISTORY: Noncontributory. PHYSICAL EXAMINATION: GENERAL: The patient is an elderly female in no acute distress, is examined in bed. VITAL SIGNS: Stable. Blood pressure is 124/64, heart rate is 66. The patient breathing at a rate o f 16 per minute. The patient is afebrile. HEENT: Head is normocephalic, atraumatic. Conjunctivae are pale. Sclerae are anicteric. Pupils ar e equally reactive to light and accommodation. Examination of the oropharynx reveals no oropharyngea l lesions. NECK: Supple. There is no adenopathy. No jugular venous distention noted. LUNGS: Clear to percussion and auscultation. CARDIOVASCULAR: Reveals S1 and S2 to be normal. No gallop or murmur is heard. ABDOMEN: Soft, nontender. Bowel sounds are present. NEUROLOGIC: Higher functions, the patient is awake, alert and oriented to time, place and person. S peech is fluent. The patient has no focal deficits at this time. The patient is able to walk with a ssistance using a walker and the therapist. ASSESSMENT NOTES AND PLAN: Metastatic carcinoma to the brain with focal seizures secondary to the br ain metastasis, currently on radiation. I discussed with the family regarding further palliative car e. The patient will continue her radiation while in the [facility] for rehab. She is also on anti-seizure medicine and being followed very closely by the neurologist as well. Thank you for allowing me to be involved in the management of this patient. I will speak to Dr. Nagel regarding the treatment plan as far as the duration ____ is concerned. Kumar Vincent MD cc: [id number] TT: 10/12/2016 01:42:27 Confirmation # [id number] Dictation # [id number] dn
[2016-10-12] MEDS: Budesonide 0.5 mg/2 ml Inhal Susp UD IH SCH ×2 (07:23→20:04)
[2016-10-12] MEDS: Tiotropium 18 mcg Cap For Inhalation IH SCH (10:04)
[2016-10-13] MEDS: Levalbuterol 0.63 MG/3 ML Inhal Soln UD IH SCH ×4 (01:05→19:51)
--- NOTE | 2016-10-13 02:01 | PN ---
DATE: 10/12/2016 This is the patient's hospital visit on TCU. For Dr. Vincent. SUBJECTIVE: The patient is an 81-year-old female seen lying awake in bed, participating now with rad iation without complaint for her metastatic carcinoma to the brain with focal seizures secondary to b rain mets. With this, the patient will continue on anti-seizure medication, and she is otherwise res ting comfortably without complaint today. OBJECTIVE: PHYSICAL EXAMINATION: VITAL SIGNS: Temperature 97.2, pulse 61, respirations 18, blood pressure 102/67, pulse ox 94%. HEENT: Unremarkable. NECK: Supple. HEART: Regular rate, occasional ectopic beat. LUNGS: Clear. ABDOMEN: Soft, nontender. EXTREMITIES: No edema. SKIN: Warm, dry and clear. NEUROLOGIC: Awake and alert. LABORATORY DATA: The patient's labs will be done in the morning. ASSESSMENT: Metastatic carcinoma to the brain, focal seizure secondary to brain metastases, on radia tion, history of hypertension, COPD, breast cancer status post mastectomy, deconditioning. PLAN: The patient is to have reconditioning along with radiation to continue with the prognosis for this patient guarded. The patient's tumor markers were done while she was hospitalized on 10/07 show ing a CEA of 2.7, CA 15-3 of 9.6, CA 27-29 of less than 8. We will monitor clinically and with labs. Aashish Jimenez MD cc: [id number] TT: 10/12/2016 22:19:52 Confirmation # [id number] Dictation # [id number] mn 10/13/2016 01:00:13
[2016-10-13] MEDS: Budesonide 0.5 mg/2 ml Inhal Susp UD IH SCH ×2 (07:27→19:52)
--- NOTE | 2016-10-13 08:44 | PN ---
DATE: 10/13/2016 SUBJECTIVE: The patient has no complaints of any chest pain, no shortness of breath, no headaches, n o dizziness. PHYSICAL EXAMINATION: VITAL SIGNS: Temperature is 97.2, pulse is 61, blood pressure 102/67, respirations 18. GENERAL: The patient comfortable, in no acute distress. HEENT: Anicteric sclerae. Moist mucosa. NECK: No JVD or adenopathy. CARDIAC: S1/S2. No murmurs. No rubs. Regular. RESPIRATORY: Clear to auscultation bilaterally. No wheezes, rales, or rhonchi. Good air entry. ABDOMEN: Bowel sounds are positive, soft, nontender, and nondistended. EXTREMITIES: No edema. Has 1+ pulses. ASSESSMENT: 1. Metastatic lesions of the brain, unknown primary. 2. Atrial fibrillation. 3. Chronic obstructive pulmonary disease. 4. Anemia. 5. Smoking. PLAN: The patient is currently comfortable. She is receiving Cardizem for her atrial fibrillation. She is on a nicotine patch. The patient is on Spiriva. She is going to continue with her Xopenex. She is receiving Decadron p.o. She is being followed by cardiology and also by neurology. The donovan ent is being followed by Dr. Vincent. She has been asking about going home. I did advise her that s he may go home she can manage her radiation therapy as an outpatient. She is getting physical therapy. Syd Serrano MD cc: [id number] TT: 10/13/2016 08:43:34 Confirmation # [id number] Dictation # [id number] en
[2016-10-13 08:54] LABS: ADD MANUAL DIFF? NO
[2016-10-13 08:58] LABS: BASO # 0.01 K/mm3 (0.0-2.0); BASO % 0.1 % (0.0-3.0); EOS % 0.1 % (1.5-5.0); GRAN # 7.42 (1.4-6.5); GRAN % 82.1 % (50.0-68.0); HEMATOCRIT 36.5 % (36.0-48.0); LYMPH % 11.3 % (22.0-35.0); MEAN CELL VOLUME 90.1 fL (80.0-105.0); MEAN CORPUSCULAR HEMOGLOBIN 30.1 pg (25.0-35.0); MEAN CORPUSCULAR HGB CONC 33.4 g/dl (31.0-37.0); MEAN PLATELET VOLUME 9.9 fl (7.0-11.0); MONO # 0.6 (0.1-0.6); MONO % 6.4 % (1.0-6.0); PLATELET COUNT 322 10^3/uL (120.0-450.0); RED CELL DISTRIBUTION WIDTH 15.3 % (11.5-14.5)
[2016-10-13 09:22] LABS: ALB/GLOB RATIO 1.1 (1.1-1.8); ALKALINE PHOSPHATASE 70 U/L (38-133); ALT/SGPT 33 U/L (7-56); AST/SGOT 38 U/L (15-39); BILIRUBIN,TOTAL 0.6 mg/dL (0.2-1.3); BLOOD UREA NITROGEN 32 mg/dL (7-21); CALCIUM 9.5 mg/dL (8.4-10.5); CARBON DIOXIDE 34 mmol/L (21-33); CHLORIDE 96 mmol/L (98-107); GFR AFRICAN-AMERICAN > 60; GLUCOSE,RANDOM 111 mg/dL (70-110); POTASSIUM 4.3 mmol/L (3.6-5.0); SODIUM 136 mmol/L (132-148)
[2016-10-13] MEDS: Tiotropium 18 mcg Cap For Inhalation IH SCH (10:46)
[2016-10-13 12:16] VITALS: RESP 18
--- NOTE | 2016-10-13 22:56 | PN ---
DATE: 10/13/2016 SUBJECTIVE: The patient is an 81-year-old female seen sitting up in bed participating with radiation for her metastatic carcinoma to the brain with a focal seizure secondary to brain mets, now controll ed on seizure medication. She is otherwise resting comfortably, in no acute distress, participating with TCU activities. There is consideration for a tissue diagnosis biopsy if possible as per Dr. Olena Morris as indicated. PHYSICAL EXAMINATION: VITAL SIGNS: Temperature 98, pulse 84, respirations 18, blood pressure 118/62, pulse ox 97%. HEENT: Unremarkable. NECK: Supple. HEART: Regular rate, occasional ectopic beat. LUNGS: Clear. ABDOMEN: Soft, nontender. CHEST: Mass in the chest wall, possibly amenable to biopsy. EXTREMITIES: No edema, otherwise negative. NEUROLOGIC: Awake, alert and oriented. SKIN: Warm, dry and clear. LABORATORY DATA: The patient's labs were done. White blood cell count 9.0, hemoglobin of 12.2, rick tocrit 36.5, platelet count 322,000 with a chem metabolic panel showing a BUN of 32, creatinine of 0. 9, otherwise normal chem metabolic panel. ASSESSMENT: Metastatic carcinoma to the brain, focal seizures secondary to the brain mets, on radiat ion, history of hypertension, chronic obstructive pulmonary disease, breast cancer status post mastec kunal, deconditioning. PLAN: As per Dr. Vincent's recommendation, ask Dr. Toby Morris to consider a tissue diagnosis biopsy of the chest wall mass as indicated. We will monitor clinically and with labs as per Dr. Serrano, participate with reconditioning on TCU. Aashish Jimenez MD cc: [id number] TT: 10/13/2016 22:55:01 Confirmation # [id number] Dictation # [id number] jn
[2016-10-14] MEDS: Levalbuterol 0.63 MG/3 ML Inhal Soln UD IH SCH ×4 (02:00→20:39)
[2016-10-14] MEDS: Budesonide 0.5 mg/2 ml Inhal Susp UD IH SCH ×2 (07:22→20:39)
[2016-10-14] MEDS: Tiotropium 18 mcg Cap For Inhalation IH SCH (10:23)
--- NOTE | 2016-10-14 10:49 | PN ---
DATE: 10/14/2016 The patient is lying on the bed, in no acute distress. Denies having any headache or dizziness. Den ies having any weakness in arms or legs. PHYSICAL EXAMINATION: VITAL SIGNS: Blood pressure is 103/49, heart rate is 66 per minute, breathing at a rate of 16 per mi nute, temperature is 98.1 degrees Fahrenheit. HEENT: Head is normocephalic, atraumatic. NECK: Supple. There are no carotid bruits. LUNGS: Clear. CARDIOVASCULAR: S1, S2 audible. No murmurs. ABDOMEN: Soft, nontender. Bowel sounds present. NEUROLOGIC EXAMINATION: MENTAL STATUS: The patient is awake, alert, oriented to time, place, and person. Speech is fluent. Naming and repetition is normal. Memory and cognition are intact. CRANIAL NERVES: Pupils are 4 mm bilaterally, reactive to light. Visual ortiz are full. Extraocula r movements are intact. There is no facial asymmetry. Palate is upgoing bilaterally and tongue is m idline. MOTOR: Tone is normal. Power is 5/5 bilaterally in all extremities. Reflexes 1+ and symmetrical. Plantars downgoing bilaterally. CEREBELLAR: [id number]-[id number] shows no dysmetria. IMPRESSION: Status post focal seizure with brain metastasis. RECOMMENDATIONS: 1. The patient is doing quite well. She had no further seizure. 2. She is to be continued on Keppra 250 mg twice a day. 3. The patient to be continued on radiation therapy. 4. The patient is off Decadron. 5. Please continue supportive care and other treatment. Thank you for the opportunity to participate in the care of this patient. Doug Saenz MD cc: [id number] TT: 10/14/2016 10:47:57 Confirmation # [id number] Dictation # [id number] en
--- NOTE | 2016-10-14 15:01 | PN ---
DATE: 10/14/2016 Hospital visit on TCU. For Dr. Vincent. SUBJECTIVE: The patient is an 81-year-old female seen sitting up in bed with family at the bedside, status post radiation earlier today. 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 The patient is requesting to be out of bed and ambulated as indicated. She is otherwise in no acute distress. OBJECTIVE: PHYSICAL EXAMINATION: VITAL SIGNS: Temperature 97.2, pulse 64, respirations 18, blood pressure 116/44, pulse ox 99%. HEENT: Unremarkable. NECK: Supple. HEART: Regular rate, occasional ectopic beat. LUNGS: Clear. ABDOMEN: Soft, nontender. EXTREMITIES: No edema. SKIN: Warm, dry and clear. NEUROLOGIC: Awake, alert and oriented. LABORATORY DATA: The patient's labs were done yesterday and will be repeated tomorrow. ASSESSMENT: Brain metastases from unknown primary, seizure secondary to above, hypertension, chronic obstructive pulmonary disease, history of breast cancer, status post mastectomy, deconditioning. PLAN: The patient is to continue present medical regimen with consideration for tissue diagnosis bio psy if possible by Dr. Toby Morris. Otherwise, to continue radiation as per Dr. Nagel. We will check labs in the a.m., monitor clinically as indicated. Also, be out of bed to ambulate as per physiother apy's recommendations. Aashish Jimenez MD cc: [phone] TT: 10/14/2016 15:00:23 Confirmation # [id number] Dictation # [id number] elias
[2016-10-15] MEDS: Levalbuterol 0.63 MG/3 ML Inhal Soln UD IH SCH ×6 (02:20→21:20)
[2016-10-15] MEDS: Budesonide 0.5 mg/2 ml Inhal Susp UD IH SCH ×2 (07:26→21:20)
[2016-10-15 07:44] LABS: ADD MANUAL DIFF? NO
[2016-10-15 07:51] LABS: EOS # 0.1 (0.0-0.7); EOS % 1.4 % (1.5-5.0); GRAN # 5.81 (1.4-6.5); GRAN % 78.5 % (50.0-68.0); HEMATOCRIT 31.4 % (36.0-48.0); LYMPH # 0.8 (1.2-3.4); LYMPH % 10.1 % (22.0-35.0); MEAN CELL VOLUME 90.2 fL (80.0-105.0); MEAN CORPUSCULAR HEMOGLOBIN 30.5 pg (25.0-35.0); MEAN CORPUSCULAR HGB CONC 33.8 g/dl (31.0-37.0); MONO # 0.7 (0.1-0.6); PLATELET COUNT 263 10^3/uL (120.0-450.0); RED CELL DISTRIBUTION WIDTH 15.9 % (11.5-14.5); WHITE BLOOD COUNT 7.4 10^3/ul (4.5-11.0)
[2016-10-15 07:57] LABS: ALKALINE PHOSPHATASE 61 U/L (38-133); ALT/SGPT 29 U/L (7-56); AST/SGOT 33 U/L (15-39); BILIRUBIN,TOTAL 0.4 mg/dL (0.2-1.3); BLOOD UREA NITROGEN 40 mg/dL (7-21); CALCIUM 9.1 mg/dL (8.4-10.5); CARBON DIOXIDE 34 mmol/L (21-33); CHLORIDE 98 mmol/L (98-107); GFR AFRICAN-AMERICAN > 60; GLUCOSE,RANDOM 88 mg/dL (70-110); SODIUM 137 mmol/L (132-148); TOTAL PROTEIN 5.2 g/dL (5.8-8.3)
[2016-10-15] MEDS: Tiotropium 18 mcg Cap For Inhalation IH SCH (11:26)
--- NOTE | 2016-10-15 14:27 | PN ---
DATE: 10/15/[address] Vincent. SUBJECTIVE: The patient is an 81-year-old female seen lying awake in bed in no acute distress with n o radiation today as it is the weekend, known to have metastatic carcinoma to the brain with focal se izures now, without complaint except that she feels cold. We will get her a blanket. OBJECTIVE PHYSICAL EXAMINATION: VITAL SIGNS: Today, temperature 97.8, pulse 62, respirations 18, blood pressure 139/61, pulse ox 96% . HEENT: Unremarkable. NECK: Supple. HEART: Regular rate, occasional ectopic beat. LUNGS: Clear. ABDOMEN: Soft. EXTREMITIES: No edema. SKIN: Warm, dry and clear. NEUROLOGIC: Awake, alert, and oriented x 3. LABORATORY DATA: The patient's labs were done. White blood cell count of 7.4, hemoglobin 10.6, rick tocrit 31.4, platelet count of 263,000 with a chem metabolic panel showing a BUN of 40, creatinine of 0.9 with a total protein of 5.2, albumin of 2.6. ASSESSMENT: Deconditioning with metastatic brain changes with an unknown primary, seizures secondary to above, hypertension, chronic obstructive pulmonary disease, history of breast cancer, status post mastectomy. PLAN: To continue present medical regimen. She was advised to drink extra clear liquids as her BUN was elevated. Otherwise, the patient is to participate with physiotherapy with reconditioning and co ntinue radiation as per Dr. Serrano. Aashish Jimenez MD cc: [phone] TT: 10/15/2016 14:26:45 Confirmation # [id number] Dictation # [id number] tn
--- NOTE | 2016-10-15 18:51 | PN ---
DATE: 10/15/2016 SUBJECTIVE: The patient is an 81-year-old, seen and examined, lying in bed, complained of feeling ve ry weak and tired and generalized weakness. She states she has no energy. Eating fair. PHYSICAL EXAMINATION: VITAL SIGNS: She is afebrile, pulse 62, respirations 18, blood pressure 130/62. LUNGS: Bilateral fair airflow, no rhonchi or crackle. HEART: S1, S2 audible. ABDOMEN: Soft, nontender, no rebound, no guarding. NEUROLOGIC: She is awake and alert, communicative. EXTREMITIES: Bilateral leg, no edema. LABORATORY: WBC 7.4, hemoglobin 10.6, hematocrit 31.4, platelet 263. Chemistry: Sodium 137, potass ium 4.0, chloride 98, CO2 of 34, BUN 40, creatinine 0.9, blood sugar of 88. ASSESSMENT AND PLAN: 1. Brain mets. 2. History of seizure secondary to brain mets. 3. Chronic obstructive pulmonary disease. 4. Hypertension. 5. History of cancer of breast in the past, status post mastectomy. 6. Chronic anemia. 7. Chronic atrial fibrillation. PLAN: Currently, the patient is on Cardizem. She is getting Keppra. She is on nicotine patch. She is getting Pulmicort and Spiriva and Xopenex. We will continue all above medication and encourage p hysical therapy. She is getting Ensure. We will reevaluate the patient in a.m. Reinier Lenz MD cc: [phone] TT: 10/15/2016 18:51:08 Confirmation # [id number] Dictation # [id number] mn
[2016-10-16] MEDS: Levalbuterol 0.63 MG/3 ML Inhal Soln UD IH SCH ×4 (01:47→20:07)
[2016-10-16] MEDS: Budesonide 0.5 mg/2 ml Inhal Susp UD IH SCH ×2 (08:47→20:06)
[2016-10-16] MEDS: Tiotropium 18 mcg Cap For Inhalation IH SCH (10:51)
--- NOTE | 2016-10-16 18:35 | PN ---
DATE: 10/16/2016 SUBJECTIVE: The patient is an 81-year-old, seen and examined. She was seen in gym, participating in therapy. Complained of generalized weakness and easy fatigability. PHYSICAL EXAMINATION: VITAL SIGNS: She is afebrile, pulse 87, respirations 18, blood pressure 150/56. LUNGS: Bilateral fair airflow, no rhonchi or crackle, has diffusely decreased breath sounds. HEART: S1, S2 audible. ABDOMEN: Soft, nontender, no rebound, no guarding. NEUROLOGIC: She is awake and alert, communicative. Ambulates with a walker. LABORATORY: There is no new lab available today. ASSESSMENT AND PLAN: 1. History of cancer of breast, status post right mastectomy. 2. Brain mets. 3. Seizure disorder. 4. Chronic atrial fibrillation. 5. Chronic anemia. 6. History of hypertension. PLAN: The patient is currently on Cardizem. She is getting Keppra. She has oral thrush, so we will start her on Mycelex Blair. She is on nicotine patch. She is getting Spiriva and Pulmicort. Enco urage physical therapy. Reinier Lenz MD cc: [phone] TT: 10/16/2016 18:34:37 Confirmation # [id number] Dictation # [id number] daja
--- NOTE | 2016-10-16 20:10 | PN ---
DATE: 10/16/2016 This is the patient's hospital visit on the TCU. For Dr. Vincent. SUBJECTIVE: The patient is an 81-year-old female seen lying awake in bed in no acute distress with r adiation on hold for this weekend, known to have metastatic carcinoma to the brain with focal seizure s with primary unknown. With this, the patient is now without complaint with the patient participati ng in physiotherapy when it is offered and TCU protocols. PHYSICAL EXAMINATION: VITAL SIGNS: Temperature 98, pulse 65, respirations 18, blood pressure 90/52 and pulse ox 100%. HEENT: Unremarkable. NECK: Supple. HEART: Regular rate, occasional ectopic beat, I/ systolic ejection murmur. LUNGS: Clear. ABDOMEN: Soft, nontender. EXTREMITIES: No edema. SKIN: Warm, dry and clear. NEUROLOGIC: Awake and alert. LABORATORY DATA: The patient's labs were done yesterday and will be repeated as per Dr. Serrano. ASSESSMENT: Deconditioned with metastatic brain changes with unknown primary, seizure secondary to a ibis, hypertension, chronic obstructive pulmonary disease, history of breast carcinoma, status post m astectomy. PLAN: The patient is to continue present medical regimen with radiation as per Dr. Nagel. We will fol low the patient with consideration for tissue diagnosis if possible as per Dr. Vincent; chest mass bi opsy may be possible as per Dr. Toby Morris' evaluation. Aashish Jimenez MD cc: [phone] TT: 10/16/2016 20:09:31 Confirmation # [id number] Dictation # [id number] [place]
[2016-10-17] MEDS: Levalbuterol 0.63 MG/3 ML Inhal Soln UD IH SCH ×4 (01:20→21:13)
[2016-10-17] MEDS: Budesonide 0.5 mg/2 ml Inhal Susp UD IH SCH ×2 (07:37→21:13)
[2016-10-17] MEDS: Tiotropium 18 mcg Cap For Inhalation IH SCH (10:05)
--- NOTE | 2016-10-17 11:08 | DS ---
HISTORY: This is an 81-year-old female who had come to the transitional care unit for rehabilitation . She has been getting radiation to her brain because of metastatic lesions in which the primary CEA is known. She has no complaints of any headaches or dizziness, no nausea. She is seeking to go terrance e, to be more comfortable. She has been doing well with physical therapy. PHYSICAL EXAMINATION: VITAL SIGNS: She has a temperature of 98, pulse of 65, blood pressure 90/52, respirations 18, O2 sat uration is 100% GENERAL: The patient comfortable, in no acute distress. HEENT: Anicteric sclerae. Moist mucosa. NECK: No JVD or adenopathy. CARDIAC: S1/S2. No murmurs. No rubs. Regular. RESPIRATORY: Clear to auscultation bilaterally. No wheezes, rales, or rhonchi. Good air entry. ABDOMEN: Bowel sounds are positive, soft, nontender, and nondistended. EXTREMITIES: No edema. Has 1+ pulses. ASSESSMENT: 1. Metastatic lesions in the brain, unknown primary: 2. Atrial fibrillation. 3. Chronic obstructive pulmonary disease. 4. Anemia. 5. Smoking. PLAN: The patient is currently on Keppra for seizure prophylaxis. She will need to continue that as an outpatient. She is getting 250 mg b.i.d. She is on Cardizem for her atrial fibrillation. She i s on a patch. The patient is on Spiriva for her breathing. She is going to continue to follow up as an outpatient with Dr. Vincent and Dr. Almodovar. CONDITION: Stable. ACTIVITIES: Increase as tolerated. The patient is not on anticoagulation at this point. I will def er this decision to Dr. Norton from cardiology. Syd Serrano MD cc: [phone] TT: 10/17/2016 11:07:05 jn
--- NOTE | 2016-10-17 12:23 | CP.PCM.CON ---
History of Present Illness - History of Present Illness History of Present Illness: Palliative services consulted by Dr Marilyn Serrano Reason: Advance Care Planning 81 year old female with brain metastasis, focal seizures admitted to TCU fro gait dysfunction and deconditioning. PMHx: HTN, breast cancer s/p mastectomy and AI therapy for 5 years,COPD. Social History: Former smoker, no alcohol or drug use. Family History: Non contributory. [place] Care Planning:She does not have an Advance Directive. She lives with her niece, Jagdish Mack. Review of Systems: Complains of occasional weakness, all other systems negative Past Patient History - Infectious Disease Hx of Infectious Diseases: None - Past Social History Smoking Status: Former Smoker - CARDIAC Hx Cardiac Disorders: Yes Hx Hypertension: Yes - PULMONARY Hx Chronic Obstructive Pulmonary Disease (COPD): Yes - NEUROLOGICAL Hx Neurological Disorder: No Hx Paralysis: No Hx Transient Ischemic Attacks (TIA): No Hx Vertigo: No - HEENT Hx HEENT Problems: No - RENAL Hx Chronic Kidney Disease: No - ENDOCRINE/METABOLIC Hx Endocrine Disorders: No Hx Diabetes Mellitus Type 1: No - HEMATOLOGICAL/ONCOLOGICAL Hx Cancer: Yes (Breast, mets to brain) - INTEGUMENTARY Hx Dermatological Problems: No - MUSCULOSKELETAL/RHEUMATOLOGICAL Hx Falls: Yes - GASTROINTESTINAL Hx Gastroesophageal Reflux: Yes - GENITOURINARY/GYNECOLOGICAL Hx Genitourinary Disorders: No - PSYCHIATRIC Hx Emotional Abuse: No Hx Physical Abuse: No Hx Substance Use: No - SURGICAL HISTORY Hx Appendectomy: Yes Hx Mastectomy: Yes (right) - ANESTHESIA Hx Anesthesia: Yes Hx Anesthesia Reactions: No Hx Malignant Hyperthermia: No Meds Allergies/Adverse Reactions: Allergies Allergy/AdvReac Type Severity Reaction Status Date / Time gluten Allergy DIARRHEA Verified 10/11/16 08:18 - Medications Medications: Current Medications Acetaminophen (Tylenol 325mg Tab) 650 mg PO Q4H PRN; Protocol PRN Reason: mild pain 1-3 Budesonide (Pulmicort Respules) 0.5 mg IH [id number] LISANDRO PRN Reason: Protocol Last Admin: 10/17/16 07:37 Dose: 0.5 mg Clotrimazole (Mycelex Blair) 10 mg MT Q4H LISANDRO PRN Reason: Protocol Last Admin: 10/17/16 10:05 Dose: 10 mg Diltiazem HCl (Cardizem) 30 mg PO BID LISANDRO PRN Reason: Protocol Last Admin: 10/17/16 10:23 Dose: 30 mg Famotidine (Pepcid) 20 mg PO DAILY LISANDRO PRN Reason: Protocol Last Admin: 10/17/16 10:04 Dose: 20 mg Levalbuterol HCl (Xopenex) 0.63 mg IH Q2 PRN; Protocol PRN Reason: Shortness of Breath Levalbuterol HCl (Xopenex) 0.63 mg IH [id number] LISANDRO PRN Reason: Protocol Last Admin: 10/17/16 07:38 Dose: 0.63 mg Levetiracetam (Keppra) 250 mg PO BID LISANDRO PRN Reason: Protocol Last Admin: 10/17/16 10:04 Dose: 250 mg Nicotine (Nicoderm Cq) 1 patch TD DAILY LISANDRO PRN Reason: Protocol Last Admin: 10/17/16 10:05 Dose: 1 patch Tiotropium [place] (Spiriva) 18 mcg IH QAM LISANDRO PRN Reason: Protocol Last Admin: 10/17/16 10:05 Dose: 18 mcg Physical Exam - Constitutional Appears: Cachectic, Chronically Ill - Head Exam Head Exam: NORMAL INSPECTION - Eye Exam Eye Exam: Normal appearance, PERRL - ENT Exam ENT Exam: Mucous Membranes Moist, Normal Oropharynx - Neck Exam Neck exam: Positive for: Normal Inspection - Respiratory Exam Respiratory Exam: Decreased Breath Sounds, NORMAL BREATHING PATTERN - Cardiovascular Exam Cardiovascular Exam: REGULAR RHYTHM, +S1, +S2 - GI/Abdominal Exam GI & Abdominal Exam: Normal Bowel Sounds, Soft Additional comments: no tenderness or guarding - Extremities Exam Extremities exam: Positive for: full ROM, normal inspection - Neurological Exam Neurological exam: Alert Additional comments: forgetful - Skin Skin Exam: Dry, Warm Results - Vital Signs Recent Vital Signs: Last Vital Signs Temp 97.4 F L 10/17/16 10:00 Pulse 67 10/17/16 10:00 Resp 18 10/17/16 10:00 BP 123/65 10/17/16 10:23 Pulse Ox 100 10/17/16 10:00 - Labs Result Diagrams: 10/15/16 07:40 10/15/16 07:40 Assessment & Plan - Assessment and Plan (Free Text) Assessment: 81 year old female admitted to TCU for deconditioning and gait instability.She is currently undergoing palliative radiation to the brain for newly diagnosed brain metastases, primary unknown. History of breast cancer 12 years ago. The patient and I met during prior admission.We discussed goals of care and advance care planning.She was interested in completing POLST at that time. The patient is alert but forgetful . we briefly discussed initiating an Advance Directive/POST. She prefers that her niece to be present before continuing this conversation. I spoke with niece via phone. She will be in tomorrow, early afternoon to further discuss advance care planning Plan: Continue current medical management. Will assist with advance care planning
--- NOTE | 2016-10-18 00:14 | PN ---
DATE: 10/17/2016 The patient is currently in TRCU 322, bed 2 undergoing physical therapy and radiation to the brain fo r newly discovered brain metastasis when she presented with focal seizures. SUBJECTIVE: This is an 81-year-old female who is lying awake in bed in no acute distress. She is co mpleting radiation soon with one more treatment tomorrow, which is scheduled. The patient ____ metas tatic cancer to the brain when she presented with focal seizures. Primary was unknown. The patient had a CAT scan of the chest, abdomen and pelvis. The patient had a prior history of breast cancer di agnosed in 2011, treated with mastectomy and treated with an aromatase inhibitor for about 5 years an d then stopped. The patient has also history of smoking so the etiology of the brain mets was unclea r, but we continued palliative radiation. The patient's case was discussed in tumor board with ____ of the scans at the mastectomy site along the chest wall. There was a thickened area where we could see a pleural based mass which is biopsiable under CAT scan guidance. We will have to talk to the mone sanchez's family to see if it is worth it to get a biopsy, because if it is indeed breast cancer, then we could treat her with hormonal manipulation. Subjectively, the patient has been participating in p hysical therapy and doing well. PHYSICAL EXAMINATION: VITAL SIGNS: Stable. T-max is 98.4, pulse 68, respirations 18, blood pressure 90/52, pulse ox is 10 0% on room air. HEENT: Head is normocephalic, atraumatic. Conjunctivae pale. Examination of the oropharynx reveals no oropharyngeal lesions. NECK: Supple. There is no adenopathy. LUNGS: Clear to percussion and auscultation. HEART: Reveals S1 and S2 to be normal. There is occasional ectopic beat with grade I/ systolic ej ection murmur. ABDOMEN: Soft, nontender. The patient is status post mastectomy, right side. EXTREMITIES: Reveals no cyanosis, clubbing or edema. SKIN: Turgor is normal. No skin lesions are noted. NEUROLOGIC: No gross focal deficits are noted. The patient's seizures are well controlled. LABORATORY DATA: Unchanged. ASSESSMENT NOTES AND PLAN: Metastatic tumor to the brain, primary undetermined, could be lung or is[place] ast. We will try to coordinate with Toby Morris and the family after speaking to the niece and I hav e told the patient that I would be happy to talk to her regarding a CT-guided biopsy to ascertain the cause of the problem, so we can guide her further. For now, palliative care is warranted but gettin g a tissue diagnosis would be most appropriate if it is feasible. Dr. Toby Morris is going to look a t the scans and then discuss with us. If it is feasible, then we can proceed to discuss with the fam marcelino. The patient's medications were reviewed. She is currently on the following medicines. She is on Cardizem 30 mg b.i.d., Keppra 250 mg b.i.d., Mycelex 10 mg p.o. q. 4 hours p.r.n., Nicoderm CQ 1 p atch daily, Pepcid 20 mg daily, Pulmicort 0.5 mg inhaled q. 12 hours, Spiriva 18 mg inhaled once a da y, Xopenex ____ inhaled q. 2 hours p.r.n., Xopenex ____ 3 mg inhaled q. 6 hours p.r.n., Labs as I me ntioned are unchanged. No new labs have been drawn. We will discuss treatment plans with Dr. Koby lundberg, the primary attending as well. Kumar Vincent MD cc: [phone] TT: 10/18/2016 00:13:54 Confirmation # [id number] Dictation # [id number] javan
[2016-10-18] MEDS: Levalbuterol 0.63 MG/3 ML Inhal Soln UD IH SCH ×4 (02:46→21:00)
[2016-10-18] MEDS: Budesonide 0.5 mg/2 ml Inhal Susp UD IH SCH ×2 (07:20→21:00)
[2016-10-18] MEDS: Tiotropium 18 mcg Cap For Inhalation IH SCH (10:56)
--- NOTE | 2016-10-18 23:35 | PN ---
DATE: 10/18/2016 The patient is in room 322, bed 2. SUBJECTIVE: The patient TRCU bed 2 undergoing physical therapy and completed radiation therapy to th e brain for discovered brain metastasis. The patient presented to the ER with change in sensorium an d focal seizures. SUBJECTIVE: The patient is awake, alert, and oriented, in no acute distress, completed radiation. T he patient is feeling better. She had metastatic cancer to the brain when she presented initially wi th change in sensorium and focal seizures. Primary was unknown. The patient had CAT scan of the [address], abdomen and pelvis. She has prior history of breast cancer treated with mastectomy in 2011, plac ed on aromatase inhibitor for about 5 years, then stopped. The patient also has history of smoking, so the etiology of the brain mets is unclear, but we continued palliative radiation. The patient's c ase was discussed at tumor board and, looking at the scans at the site of the mastectomy along with c hest wall, there appears to be a density that may be biopsiable so that we can at least have a histol ogic proof what the metastatic cancer in the brain could be. If it is indeed from the breast, we sameer l place her on specific targeted medications. I will speak to the family to see if she would be a ca ndidate for outpatient biopsy. She could even be placed on hormonal manipulations depending on the f indings. The patient has been otherwise participating in physical therapy, doing well and feels that mentally her sensorium has come back to the level where she used to be and she has told me that I sh ould speak to her niece regarding further treatment plans. PHYSICAL EXAMINATION: GENERAL: The patient is awake, alert, and oriented. VITAL SIGNS: Stable as stated in the chart. HEENT: Head is normocephalic, atraumatic. Conjunctivae pale. Examination of the oropharynx reveals no oropharyngeal lesions. NECK: Supple. There is no adenopathy. LUNGS: Clear to percussion and auscultation. The patient is post-mastectomy on the right side. Lef t breast is unremarkable. HEART: Reveals an occasional ectopic beat with grade I/ systolic ejection murmur. ABDOMEN: Soft, nontender. EXTREMITIES: Reveal no cyanosis, clubbing or edema. NEUROLOGIC: Higher functions are normal. No focal deficits are noted on neurologic exam. LABORATORY DATA: Last tests were done on 10/15. Will repeat the tests. ASSESSMENT NOTES AND PLAN: The patient has metastatic tumor to the brain, primary site unknown, coul d be breast or lung. Will speak to Toby Morris about biopsy after speaking to the niece, who is the care person for the patient. For now, palliative care is warranted. She has completed radiation, wi ll try to set up things as an outpatient. MEDICATIONS: Reviewed and she is currently on the medications that are outlined. She is on Cardizem 30 b.i.d., Keppra 250 b.i.d., Mycelex 10 mg p.o. every 4 hours p.r.n., Nicoderm CQ patch 1 daily, Pe pcid 20 mg daily, Pulmicort 0.5 mg inhaled every 12 hours, Spiriva 18 mg inhaled once a day, Xopenex inhaled every 2 hours p.r.n. Will discuss my treatment plans with Dr. Serrano, the primary medical doctor and the family as well. Will reach out to Toby Morris as well. Kumar Vincent MD cc: [id number] TT: 10/18/2016 23:35:35 Confirmation # [id number] Dictation # [id number] daja
[2016-10-19] MEDS: Levalbuterol 0.63 MG/3 ML Inhal Soln UD IH SCH ×4 (02:35→21:11)
[2016-10-19] MEDS: Budesonide 0.5 mg/2 ml Inhal Susp UD IH SCH ×2 (07:30→21:11)
--- NOTE | 2016-10-19 10:31 | DS ---
Please see the discharge summary that was done on 10/17/2016. The patient has no complaints of any ch est pain, no shortness of breath, no headaches, no dizziness. PHYSICAL EXAMINATION: VITAL SIGNS: Temperature is 97.4, blood pressure is 103/41, O2 saturation last was 100%, respiration is 12. GENERAL: The patient comfortable, in no acute distress. HEENT: Anicteric sclerae. Moist mucosa. NECK: No JVD or adenopathy. CARDIAC: S1/S2. No murmurs. No rubs. Regular. RESPIRATORY: Clear to auscultation bilaterally. No wheezes, rales, or rhonchi. Good air entry. ABDOMEN: Bowel sounds are positive, soft, nontender, and nondistended. EXTREMITIES: No edema. Has 1+ pulses. ASSESSMENT: 1. Metastatic lesions of the brain of unknown primary. 2. Atrial fibrillation, not on anticoagulation. 3. Chronic obstructive pulmonary disease. 4. Anemia. 5. Smoking. PLAN: The patient is on Cardizem for her hypertension and atrial fibrillation. She is on Keppra for her seizures. The patient is on Mycelex. She is going to continue with nicotine patch. She is rec eiving Pulmicort. She is on her Spiriva. She is going to be followed up by Dr. Vincent in the offic e. DIET: 2 g sodium. CONDITION: Stable. ACTIVITY: Increase as tolerated. FOLLOWUP: With Dr. Vincent in 1 week. Follow with primary care doctor in 1 week. Syd Serrano MD cc: [id number] TT: 10/19/2016 10:30:03 en
[2016-10-19] MEDS: Tiotropium 18 mcg Cap For Inhalation IH SCH (11:40)
--- NOTE | 2016-10-19 14:09 | CP.PCM.PN ---
Subjective - Date & Time of Evaluation Date of Evaluation: 10/19/16 Time of Evaluation: 11:30 - Subjective Subjective: Alert,oriented. Offers no complaints. Objective - Vital Signs/Intake and Output Vital Signs (last 24 hours): Temp Pulse Resp BP Pulse Ox 97.5 F L 97 H 18 133/57 L 97 10/19/16 10:00 10/19/16 10:00 10/19/16 10:00 10/19/16 11:35 10/19/16 10:00 - Medications Medications: Current Medications Acetaminophen (Tylenol 325mg Tab) 650 mg PO Q4H PRN; Protocol PRN Reason: mild pain 1-3 Budesonide (Pulmicort Respules) 0.5 mg IH [id number] LISANDRO PRN Reason: Protocol Last Admin: 10/19/16 07:30 Dose: 0.5 mg Clotrimazole (Mycelex Blair) 10 mg MT 0000,0400,0800,1200 LISANDRO PRN Reason: Protocol Last Admin: 10/19/16 11:38 Dose: 10 mg Diltiazem HCl (Cardizem) 30 mg PO BID LISANDRO PRN Reason: Protocol Last Admin: 10/19/16 11:35 Dose: 30 mg Famotidine (Pepcid) 20 mg PO DAILY LISANDRO PRN Reason: Protocol Last Admin: 10/19/16 11:39 Dose: 20 mg Levalbuterol HCl (Xopenex) 0.63 mg IH Q2 PRN; Protocol PRN Reason: Shortness of Breath Levalbuterol HCl (Xopenex) 0.63 mg IH [id number] LISANDRO PRN Reason: Protocol Last Admin: 10/19/16 13:05 Dose: 0.63 mg Levetiracetam (Keppra) 250 mg PO BID LISANDRO PRN Reason: Protocol Last Admin: 10/19/16 11:37 Dose: 250 mg Nicotine (Nicoderm Cq) 1 patch TD DAILY LISANDRO PRN Reason: Protocol Last Admin: 10/19/16 11:38 Dose: 1 patch Tiotropium Elliott (Spiriva) 18 mcg IH QAM LISANDRO PRN Reason: Protocol Last Admin: 10/19/16 11:40 Dose: 18 mcg - Labs Labs: 10/15/16 07:40 10/15/16 07:40 - Constitutional Appears: Cachectic, Chronically Ill - Eye Exam Eye Exam: Normal appearance, PERRL - ENT Exam ENT Exam: Mucous Membranes Moist - Respiratory Exam Respiratory Exam: Clear to Ausculation Bilateral, NORMAL BREATHING PATTERN - Cardiovascular Exam Cardiovascular Exam: REGULAR RHYTHM, +S1, +S2 - GI/Abdominal Exam GI & Abdominal Exam: Soft, Normal Bowel Sounds - Extremities Exam Extremities Exam: Full ROM, Normal Inspection - Neurological Exam Neurological Exam: Alert, Oriented x3 - Skin Skin Exam: Dry, Pallor Assessment and Plan - Assessment and Plan (Free Text) Assessment: 81 year old female admitted with gait dysfunction,deconditioinig. History of breast cancer, colon cancer, focal seizures, metastatic brain lesions> undergoing palliative RT to brain. Patient and I discussed advance care planning in the presence of her niece, Jagdish. Purpose of POLST explained, questions answered. Patient completed POLST:DNR/DNI. Patient's niece Tamika Mack is health care surrogate. Time spent with patient and family discussing goals of care and advance care wishes, 25 minutes. Plan: POLST: DNR/DNI
[2016-10-20] MEDS: Levalbuterol 0.63 MG/3 ML Inhal Soln UD IH SCH ×4 (01:49→20:14)
[2016-10-20] MEDS: Budesonide 0.5 mg/2 ml Inhal Susp UD IH SCH ×2 (07:22→20:14)
[2016-10-20] MEDS: Tiotropium 18 mcg Cap For Inhalation IH SCH (09:59)
[2016-10-20 12:52] VITALS: O2SAT 99
[2016-10-21] MEDS: Levalbuterol 0.63 MG/3 ML Inhal Soln UD IH SCH ×3 (01:36→13:12)
--- NOTE | 2016-10-21 01:40 | PN ---
DATE: 10/20/2016 The patient is in room 322, bed 2. SUBJECTIVE: The patient is in [facility] undergoing physical therapy and today is the last dose of radiati on therapy to the brain for discovered brain metastasis. The patient had presented to the ER for manohar nges and sodium and focal seizures what lead to the investigation. The patient currently is awake, al ert, and oriented, in no acute distress. Today was the last dose of radiation. The patient is feeli ng better. To the metastatic cancer to the brain, primary site is yet to be determined as the patient did not have any biopsies. The patient is a smoker for which we did CAT scan of the lung but did no t reveal any primary source in the lung. The patient was noted on the chest CT to have some changes in the right side of the chest wall, which is biopsiable. That could be consistent where we view orig in of the tumor. The patient does have a smoking history and the case was discussed in tumor board a nd based on the scans and the appearance on the scans of the right chest wall, that it appears to be a dire density that is biopsied under CAT scan guidance. This may give histologic proof of what the c ancer in the brain could be and if indeed it is breast or lung by doing molecular testing, we may be able to offer some choices in the form of pills. The patient is otherwise participating in physical therapy, doing well. I am ready to speak to the niece once completion of radiation therapy to decide which direction to go including the need if be of CT-guided biopsy. PHYSICAL EXAMINATION: GENERAL: The patient is awake, alert, and oriented. VITAL SIGNS: Stable as stated in the chart. Head is normocephalic atraumatic. HEENT: Conjunctivae pale. Sclerae are anicteric. Pupils are equally reactive to light and accommod ation. Examination of the oropharynx reveals no oropharyngeal lesions. NECK: Supple. There is no adenopathy. LUNGS: Clear to percussion and auscultation. The patient is post mastectomy on the right side. Lef t breast is unremarkable. HEART: Reveals S1 and S2 to be normal. No gallop or murmur is heard. ABDOMEN: Soft, nontender. Bowel sounds are present. EXTREMITIES: Reveals no cyanosis, clubbing or edema. NEUROLOGIC: Higher functions are normal. No focal deficits are noted. ASSESSMENT NOTES AND PLAN: The patient has metastatic cancer to the brain, completing a 10th dose of palliative radiation. The patient is going to be discharged and we will make further recommendation s after discussing the case with the patient's family. At the least I will put her back on a pill lik e letrozole until we get answers for biologic confirmation of what the cancer would be. It is not un reasonable to start the aromatase inhibitor as she had been on it for almost 5 years . Routine post exam instructions have been given to the patient. Kumar Vincent MD cc: [id number] TT: 10/21/2016 01:39:59 Confirmation # [id number] Dictation # [id number]
[2016-10-21 06:36] VITALS: PULSE 62; TEMP 97.9
[2016-10-21] MEDS: Budesonide 0.5 mg/2 ml Inhal Susp UD IH SCH (07:35)
[2016-10-21] MEDS: Tiotropium 18 mcg Cap For Inhalation IH SCH (11:16)
[2016-10-21 18:19] VITALS: BP 140/55
--- NOTE | 2016-10-22 02:13 | PN ---
DATE: 10/21/2016 LOCATION: The patient is in room 322, bed 2. PROBLEMS: She is being discharged today. She completed her last dose of radiation. The patient is being picked up by a niece later on this evening. She had presented to the ER for changes in her sen sorium with focal seizures. With respect to the investigation, the patient was found to have multifo lion brain metastasis and was treated with palliative radiation. Case was presented in tumor board, [facility] where the primary was coming from . On closer examination of the scans, which include s the CAT scan of the chest and CAT scan of the abdomen and pelvis, reveals a density in the chest wa ll on the right side of the side of the mastectomy, which could be easily biopsiable to determine the source of her metastatic disease. The patient does have a history of smoking, which she has stopped after coming into the hospital, but there was no lung pathology that could be determined on the CAT scan. PHYSICAL EXAMINATION: GENERAL: The patient is awake, alert, and oriented. PLAN: She has been participating in physical therapy and she will continue her medications at home a t this time, including the tapered doses of medications. The patient will be followed up in the [facility] as an outpatient in about 2 weeks. Medications were reviewed. She will be on Cardizem 30 b.i.d., Keppra 250 b.i.d., Mycelex Blair. She is on Nicoderm CQ patches, Pepcid 20 daily. She is on Pulmi luis Respules 0.5 mg every 12 hours, Spiriva 18 mcg inhaled every day and Xopenex nebulizer every 6 h ours p.r.n. Condition on discharge is fair. Overall prognosis is, however, guarded. We left the de cisions to exactly what the family wants after we meet with her as an outpatient. Kumar Vincent MD cc: [id number] TT: 10/22/2016 02:12:22 Confirmation # [id number] Dictation # [id number]
== END 2016-10-21 19:35 | disposition home or self-care (01) | DRG 92 ==
LOC: TRCU 16:31
PROVIDERS: ADMIT Internal Medicine Nephrology; ATTEND Internal Medicine Nephrology
PROC: F07Z9FZ Gait Training/Functional Ambulation Treatment using Assistive, Adaptive, Supportive or Protective Equipment (ICD-10-PCS; principal; 2016-10-11)
PROC: D0001ZZ Beam Radiation of Brain using Photons 1 - 10 MeV (ICD-10-PCS; 2016-10-11)
PROC: 3E0F7GC Introduction of Other Therapeutic Substance into Respiratory Tract, Via Natural or Artificial Opening (ICD-10-PCS; 2016-10-11)
PROC: F08Z4FZ Home Management Treatment using Assistive, Adaptive, Supportive or Protective Equipment (ICD-10-PCS; 2016-10-14)
DX: R26.89 Other abnormalities of gait and mobility (principal); C79.31 Secondary malignant neoplasm of brain; C80.1 Malignant (primary) neoplasm, unspecified; I48.2 Chronic atrial fibrillation; B37.0 Candidal stomatitis; G40.89 Other seizures; I44.1 Atrioventricular block, second degree; J44.9 Chronic obstructive pulmonary disease, unspecified; D64.9 Anemia, unspecified; I10 Essential (primary) hypertension; F17.210 Nicotine dependence, cigarettes, uncomplicated; Z66 Do not resuscitate; Z85.3 Personal history of malignant neoplasm of breast; Z90.11 Acquired absence of right breast and nipple

== ENCOUNTER 2016-11-07 10:01 | Emergency (ER) | payer MEDICARE, BC ==
[2016-11-07 10:19] VITALS: BMI 16.6
[2016-11-07] MEDS ORDERED: Cefepime IV 2 gm in NS 100 ML IVPB STA (10:24)
[2016-11-07] MEDS ORDERED: Vancomycin 1gm in NS 250ml 250 ML IVPB STA (10:24)
[2016-11-07 10:33] LABS: ADD MANUAL DIFF? NO
[2016-11-07 10:38] LABS: BASO # 0.01 K/mm3 (0.0-2.0); BASO % 0.1 % (0.0-3.0); GRAN # 9.62 (1.4-6.5); GRAN % 88.5 % (50.0-68.0); HEMATOCRIT 37.4 % (36.0-48.0); LYMPH # 0.8 (1.2-3.4); LYMPH % 7.5 % (22.0-35.0); MEAN CELL VOLUME 88.6 fL (80.0-105.0); MEAN CORPUSCULAR HEMOGLOBIN 30.8 pg (25.0-35.0); MEAN CORPUSCULAR HGB CONC 34.8 g/dl (31.0-37.0); MEAN PLATELET VOLUME 10.2 fl (7.0-11.0); MONO # 0.4 (0.1-0.6); MONO % 3.9 % (1.0-6.0); PLATELET COUNT 241 10^3/uL (120.0-450.0); WHITE BLOOD COUNT 10.9 10^3/ul (4.5-11.0)
[2016-11-07 10:41] LABS: VENOUS BLOOD GAS BASE EXCESS 3.5 mmol/L (0.0-2.0); VENOUS BLOOD PH 7.45 (7.32-7.43)
--- NOTE | 2016-11-07 10:44 | RAD ---
HISTORY: Sepsis Patient COMPARISON: 10/05/2016 FINDINGS: LUNGS: No active pulmonary disease. PLEURA: No significant pleural effusion identified, no pneumothorax apparent. CARDIOVASCULAR: Normal. OSSEOUS STRUCTURES: No significant abnormalities. VISUALIZED UPPER ABDOMEN: Normal. OTHER FINDINGS: None. IMPRESSION: No active disease.
[2016-11-07 10:48] LABS: ALB/GLOB RATIO 0.9 (1.1-1.8); BILIRUBIN,TOTAL 0.6 mg/dL (0.2-1.3); MAGNESIUM 2.4 mg/dL (1.7-2.2); PHOSPHOROUS 2.9 mg/dL (2.5-4.5); POTASSIUM 3.9 mmol/L (3.6-5.0); TOTAL PROTEIN 4.7 g/dL (5.8-8.3)
[2016-11-07 10:49] LABS: URINE BILIRUBIN NEGATIVE (NEGATIVE); URINE BLOOD NEGATIVE (NEGATIVE); URINE GLUCOSE (UA) NEGATIVE (NEGATIVE); URINE KETONE NEGATIVE (NEGATIVE); URINE LEUKOCYTE ESTERASE NEGATIVE Leu/uL (NEGATIVE); URINE PROTEIN NEGATIVE mg/dL (<30 mg/dL); URINE UROBILINOGEN 0.2 E.U./dL (<1 E.U./dL)
[2016-11-07 10:50] LABS: URINE APPEARANCE CLEAR (CLEAR); URINE COLOR YELLOW (YELLOW)
[2016-11-07 10:53] LABS: INR 1.09 (0.93-1.08)
[2016-11-07 11:04] LABS: TROPONIN I 0.42 ng/mL
--- NOTE | 2016-11-07 11:23 | ED PDOC ---
Arrival/HPI - General Chief Complaint: Altered Mental Status Time Seen by Provider: 11/07/16 10:08 Historian: Family - History of Present Illness Narrative History of Present Illness (Text): 11/07/16 10:08 A 81 year old female, whose past medical history includes breast cancer with metastasis, was brought into the emergency department by family complaining of increased lethargy today. Family note decreased appetite and altered mental status. On evaluation, patient is alert and oriented to name only. HPI and ROS limited due to patients state. Family report patient has a standing DNR/DNI. PMD: Dr. Buckner Time/Duration: Other (Today) Symptom Course: Unchanged Quality: Other Context: Home Past Medical History - Provider Review Nursing Documentation Reviewed: Yes - Infectious Disease Hx of Infectious Diseases: None - Cardiac Hx Cardiac Disorders: Yes Hx Hypertension: Yes - Pulmonary Hx Respiratory Disorders: Yes Hx Chronic Obstructive Pulmonary Disease (COPD): Yes - Neurological Hx Neurological Disorder: No Hx Paralysis: No Hx Transient Ischemic Attacks (TIA): No Hx Vertigo: No - HEENT Hx HEENT Disorder: No - Renal Hx Renal Disorder: No - Endocrine/Metabolic Hx Endocrine Disorders: No Hx Diabetes Mellitus Type 1: No - Hematological/Oncological Hx Blood Disorders: Yes Hx Cancer: Yes (Breast, mets to brain) - Integumentary Hx Dermatological Disorder: No - Musculoskeletal/Rheumatological Hx Musculoskeletal Disorders: Yes Hx Falls: Yes (past) - Gastrointestinal Hx Gastrointestinal Disorders: Yes Hx Gastroesophageal Reflux: Yes - Genitourinary/Gynecological Hx Genitourinary Disorders: No - Psychiatric Hx Psychophysiologic Disorder: No Hx Emotional Abuse: No Hx Physical Abuse: No Hx Substance Use: No - Surgical History Hx Appendectomy: Yes Hx Mastectomy: Yes (right) - Anesthesia Hx Anesthesia: Yes Hx Anesthesia Reactions: No Hx Malignant Hyperthermia: No - Suicidal Assessment Feels Threatened In Home Enviroment: No Family/Social History - Physician Review Nursing Documentation Reviewed: Yes Family/Social History: No Known Family HX Smoking Status: Heavy Smoker > 10 Cigarettes Daily Hx Alcohol Use: No Hx Substance Use: No Allergies/Home Meds Allergies/Adverse Reactions: Allergies gluten Allergy (Verified 11/07/16 10:05) DIARRHEA Home Medications: Home Meds Medication Instructions Recorded Confirmed Folic Acid 1 mg PO BID 04/17/13 11/07/16 Anastrozole [Arimidex 1 mg Tab] 1 mg PO DAILY 10/05/16 11/07/16 Olmesartan/Hydrochlorothiazide 1 tab PO DAILY 10/05/16 11/07/16 [Olmesartan-Hctz 40-12.5 mg Tab] Omeprazole 40 mg PO DAILY 10/05/16 11/07/16 Dexamethasone [Decadron] 2 mg PO BID 11/07/16 11/07/16 Review of Systems - Review of Systems Systems not reviewed;Unavailable: Altered Mental Status Physical Exam - Physical Exam Narrative Physical Exam (Text): - Physical exam Patient appears age appropriate - Systems Exam Head: Present: Atraumatic, Normocephalic Pupils: Present: PERRL Extraocular Muscles: Present: EOMI Conjunctiva: Present: Normal Mouth: Present: Dry Mucous Membranes Neck: Present: Normal Range of Motion. No: MIDLINE TENDERNESS, Paraspinal Tenderness Respiratory/Chest: Present: Clear to Auscultation, Good Air Exchange. No: Respiratory Distress, Accessory Muscle Use, Tachypneic Cardiovascular: Present: Regular Rate and Rhythm, Normal S1, S2, Peripheral Pulses Present. No: Murmurs Abdomen: Present: Normal Bowel Sounds, No: Tenderness, Peritoneal Signs, Rebound, Guarding, Distention Back: Present: Normal Inspection. No: Midline Tenderness, Paraspinal Tenderness Upper Extremity: Present: Normal Inspection. No: Cyanosis, Edema Lower Extremity: Present: Normal Inspection. No: Edema Neurological: Present: GCS=15, Speech Normal, cranial nerves II through XII fully intact with no cerebellar abnormality, neuro-sensory fully intact. No focal neurological deficits. Skin: Present: Warm, Dry, Normal Color. No: Rashes Lymphatic: Present: OX3, NI, NC Psychiatric: Present: Alert and Oriented to name only Vital Signs Reviewed: Yes Vital Signs Temp Pulse Resp BP Pulse Ox 11/07/16 17:50 82 16 89/43 L 100 11/07/16 16:00 76 17 82/43 L 100 11/07/16 14:00 98 F 86 18 86/62 L 100 11/07/16 12:42 70 16 77/36 L 100 11/07/16 11:55 68 18 91/41 L 98 11/07/16 11:40 70 18 81/37 L 99 11/07/16 11:25 88 16 82/43 L 98 11/07/16 11:10 70 18 64/31 L 100 11/07/16 10:55 86 16 67/37 L 99 11/07/16 10:40 71 18 76/38 L 99 11/07/16 10:25 148 H 20 72/47 L 100 11/07/16 10:15 100.9 F H 148 H 20 89/44 L 93 L Temperature: Febrile Blood Pressure: Hypotensive Pulse: Tachycardic Respiratory Rate: Normal Appearance: Positive for: Well-Appearing, Non-Toxic, Comfortable Mental Status: Positive for: other (Alert and oriented to name only). No: Agitated Finger Stick Blood Glucose: 119 Medical Decision Making ED Course and Treatment: 11/07/16 10:08 Impression: A 81 year old female with altered mental status. Family note lethargy and decreased appetite. Patient alert and oriented to name only, febrile, no focal neurological deficits on exam. Family confirm DNR/DNI. Differential Diagnosis included but are not limited to: Sepsis vs. PNA vs. UTI Plan: -- Chest xray -- EKG -- Labs -- Blood and Urine culture -- Urinalysis -- Cefepime, IV fluids, Tylenol and Vancomycin -- Reassess and disposition Progress Notes: EKG shows sinus tachycardia at [address]-segment elevations, RBBB, lateral ST-segment depressions. Interpreted by me. Report Date : 11/07/2016 10:42:24 Procedure: Chest xray Dictator : Cesar German MD IMPRESSION: No active disease. 11/07/16 11:36 Dr. Norton paged. Awaiting call back. 11/07/16 11:52 Case discussed in detail with Dr. Norton, who states to repeat Troponin in 8 hours, patient has no history of heart disease. Agrees with rectal aspirin. 11/07/16 12:[address] Mason from ICU, who states he will evaluate patient at bedside. 11/07/16 13:18 Patients niece, who is a POA, spoke with hospice Estela and expressed wishes to take patient home to ' in peace'. Estela states will write liq. morphine orders 11/07/16 15:08 [address] Dr. Vincent informed about patients condition. - Critical Care Critical Care Minutes: 30 minutes - Lab Interpretations Lab Results: 11/07/16 10:15 11/07/16 10:15 Lab Results 11/07/16 10:25: Urine Color Yellow, Urine Appearance Clear, Urine pH 6.0, Ur Specific [place] 1.020, Urine Protein Negative, Urine Glucose (UA) Negative, Urine Ketones Negative, Urine Blood Negative, Urine Nitrate Negative, Urine Bilirubin Negative, Urine Urobilinogen 0.2, Ur Leukocyte Esterase Negative 11/07/16 10:21: POC Glucose (mg/dL) 119 H 11/07/16 10:15: WBC 10.9 D, RBC 4.22, Hgb 13.0, Hct 37.4, MCV 88.6, MCH 30.8, MCHC 34.8, RDW 16.0 H, Plt Count 241, MPV 10.2, Gran % 88.5 H, Lymph % (Auto) 7.5 L, Colbert % (Auto) 3.9, Eos % (Auto) 0.0 L, Baso % (Auto) 0.1, Gran # 9.62 H, Lymph # 0.8 L, Colbert # 0.4, Eos # 0.0, Baso # 0.01, PT 11.8, INR 1.09 H, APTT 26.0, pO2 140 H, VBG pH 7.45 H, VBG pCO2 40.0, VBG HCO3 27.8, VBG Total CO2 29.0 H, VBG O2 Sat (Calc) 99.4 H, VBG Base Excess 3.5 H, VBG Potassium 3.8, Glucose 132 H, Lactate 1.6, FiO2 21.0, Sodium 132.0, Potassium 3.9, Chloride 101.0, Carbon Dioxide 27, Anion Gap 11, BUN 72 H, Creatinine 1.4, Est GFR ( Amer) 44, Est GFR (Non-Af Amer) 36, Random Glucose 123 H, Calcium 8.0 L , Phosphorus 2.9, Magnesium 2.4 H, Total Bilirubin 0.6, AST 29, ALT 38, Alkaline Phosphatase 78, Troponin I 0.42 H* D, NT-Pro-B Natriuret Pep 12947 H, Total Protein 4.7 L, Albumin 2.2 L, Globulin 2.5, Albumin/Globulin Ratio 0.9 L, Venous Blood Potassium 3.8 - RAD Interpretation Radiology Orders: 11/07/16 10:25 CHEST PORTABLE [RAD] Stat - Medication Orders Current Medication Orders: Discontinued Medications Acetaminophen (Tylenol 325 Mg Supp) 975 mg MT ONCE PRN PRN Reason: Fever >100.4 F Aspirin (Aspirin Supp) 300 mg RC STAT STA Stop: 11/07/16 11:42 Last Admin: 11/07/16 12:01 Dose: 300 MG Cefepime HCl (Maxipime 2gm) 100 mls @ 100 mls/hr IVPB STAT STA PRN Reason: Protocol Stop: 11/07/16 11:23 Last Admin: 11/07/16 10:43 Dose: 100 MLS/HR eMAR Start Stop Document 11/07/16 10:43 WHEEL LOADER OPERATOR (Rec: 11/07/16 10:43 WHEEL LOADER OPERATOR [id number]) Intravenous Solution Start Date 11/07/16 Start Time 10:43 End Date 11/07/16 End time 11:43 Total Infusion Time 60 Sodium Chloride 2,000 ml/ IV (SUPPLIES) 2,000 mls @ 2,471.16 mls/hr IV ONCE ONE PRN Reason: 60 ML/KG/HR Stop: 11/07/16 10:25 Last Admin: 11/07/16 10:41 Dose: 2,471.16 MLS/HR eMAR Start Stop Document 11/07/16 10:41 WHEEL LOADER OPERATOR (Rec: 11/07/16 10:42 WHEEL LOADER OPERATOR [id number]) Intravenous Solution Start Date 11/07/16 Start Time 10:42 Vancomycin HCl (Vancomycin 1gm) 250 mls @ 167 mls/hr IVPB STAT STA PRN Reason: Protocol Stop: 11/07/16 11:53 Last Admin: 11/07/16 11:54 Dose: 167 MLS/HR eMAR Start Stop Document 11/07/16 11:54 WHEEL LOADER OPERATOR (Rec: 11/07/16 11:55 WHEEL LOADER OPERATOR [id number]) Intravenous Solution Start Date 11/07/16 Start Time 11:54 End Date 11/07/16 End time 13:24 Total Infusion Time 90 Sodium Chloride (Sodium Chloride 0.9%) 1,000 mls @ 1,000 mls/hr IV .Q1H STA Stop: 11/07/16 12:40 Last Admin: 11/07/16 11:54 Dose: 1,000 MLS/HR eMAR Start Stop Document 11/07/16 11:54 WHEEL LOADER OPERATOR (Rec: 04/17/17 11:54 WHEEL LOADER OPERATOR [id number]) Intravenous Solution Start Date 11/07/16 Start Time 11:54 End Date 11/07/16 End time 12:54 Total Infusion Time 60 - Scribe Statement The provider has reviewed the documentation as recorded by the Margieibjoselin Vargas Provider Scribe Attestation: All medical record entries made by the Scribe were at my direction and personally dictated by me. I have reviewed the chart and agree that the record accurately reflects my personal performance of the history, physical exam, medical decision making, and the department course for this patient. I have also personally directed, reviewed, and agree with the discharge instructions and disposition. Disposition/Present on Arrival - Present on Arrival Any Indicators Present on Arrival: No History of DVT/PE: No History of Uncontrolled Diabetes: No Urinary Catheter: No History of Decub. Ulcer: No History Surgical Site Infection Following: None - Disposition Have Diagnosis and Disposition been Completed?: Yes Diagnosis: SIRS (systemic inflammatory response syndrome) Disposition: HOME/ ROUTINE Disposition Time: 13:29 Patient Plan: Discharge Condition: GUARDED Discharge Instructions (ExitCare): Hospice Care (GEN) Referrals: Jackeline Buckner MD [Primary Care Provider] - Follow up with primary
[2016-11-07] MEDS ORDERED: Sodium Chloride 0.9% 1,000 ML IV STA (11:41)
--- NOTE | 2016-11-07 12:11 | CARD ---
APPROVED REPORT EKG Measurement Heart [id number] <Conclusion> Sinus tachycardia with short MT Right bundle branch block T wave abnormality, consider inferior ischemia Abnormal ECG
--- NOTE | 2016-11-07 13:41 | CP.PCM.CON ---
History of Present Illness - History of Present Illness History of Present Illness: Palliative services requested by Dr Guillermo Lenz notified Reason: Goals of care/hospice discussion 81 year old female brought to ED with altered mental status, lethargy, appetite. Labs:BNP 46231, Tropinin 0.42,BUN 72, Creat. 1.4. PMHx: metastatic breast cancer, s/p right mastectomy, Social History: Current smoker 60 pack year, no alcohol or drug use. Lives with her niece Jagdish Mack who is her POA. Family History: Non contributory. Advance Care Planning: The patient has a POLST. She is DNR/DNI Review of Systems: Unable to obtain, patient is non verbal/altered. Past Patient History - Infectious Disease Hx of Infectious Diseases: None - Past Social History Smoking Status: Heavy Smoker > 10 Cigarettes Daily - CARDIAC Hx Cardiac Disorders: Yes Hx Hypertension: Yes - PULMONARY Hx Respiratory Disorders: Yes Hx Chronic Obstructive Pulmonary Disease (COPD): Yes - NEUROLOGICAL Hx Neurological Disorder: No Hx Paralysis: No Hx Transient Ischemic Attacks (TIA): No Hx Vertigo: No - HEENT Hx HEENT Problems: No - RENAL Hx Chronic Kidney Disease: No - ENDOCRINE/METABOLIC Hx Endocrine Disorders: No Hx Diabetes Mellitus Type 1: No - HEMATOLOGICAL/ONCOLOGICAL Hx Blood Disorders: Yes Hx Cancer: Yes (Breast, mets to brain) - INTEGUMENTARY Hx Dermatological Problems: No - MUSCULOSKELETAL/RHEUMATOLOGICAL Hx Musculoskeletal Disorders: Yes Hx Falls: Yes (past) - GASTROINTESTINAL Hx Gastrointestinal Disorders: Yes Hx Gastroesophageal Reflux: Yes - GENITOURINARY/GYNECOLOGICAL Hx Genitourinary Disorders: No - PSYCHIATRIC Hx Psychophysiologic Disorder: No Hx Emotional Abuse: No Hx Physical Abuse: No Hx Substance Use: No - SURGICAL HISTORY Hx Appendectomy: Yes Hx Mastectomy: Yes (right) - ANESTHESIA Hx Anesthesia: Yes Hx Anesthesia Reactions: No Hx Malignant Hyperthermia: No Meds Allergies/Adverse Reactions: Allergies Allergy/AdvReac Type Severity Reaction Status Date / Time gluten Allergy DIARRHEA Verified 11/07/16 10:05 - Medications Medications: Current Medications Acetaminophen (Tylenol 325 Mg Supp) 975 mg IA ONCE PRN PRN Reason: Fever >100.4 F Physical Exam - Constitutional Appears: No Acute Distress, Chronically Ill - Head Exam Head Exam: NORMAL INSPECTION - Eye Exam Eye Exam: Normal appearance, PERRL - ENT Exam ENT Exam: Mucous Membranes Dry, Normal Oropharynx - Neck Exam Neck exam: Positive for: Normal Inspection - Respiratory Exam Respiratory Exam: Decreased Breath Sounds, NORMAL BREATHING PATTERN - Cardiovascular Exam Cardiovascular Exam: REGULAR RHYTHM, +S1, +S2 - GI/Abdominal Exam GI & Abdominal Exam: Hypoactive Bowel Sounds, Soft Additional comments: no tenderness or guarding - Neurological Exam Neurological exam: Altered - Skin Skin Exam: Dry, Pallor - Additional Findings Additional findings: Palliative performance scale rating 20% Results - Vital Signs Recent Vital Signs: Last Vital Signs Temp 100.9 F H 11/07/16 10:15 Pulse 70 11/07/16 12:42 Resp 16 11/07/16 12:42 BP 77/36 L 11/07/16 12:42 Pulse Ox 100 11/07/16 12:42 - Labs Result Diagrams: 11/07/16 10:15 11/07/16 10:15 Labs: Laboratory Results - last 24 hr 11/07/16 11/07/16 10:15 10:25 WBC 10.9 D RBC 4.22 Hgb 13.0 Hct 37.4 MCV 88.6 MCH 30.8 MCHC 34.8 RDW 16.0 H Plt Count 241 MPV 10.2 Gran % 88.5 H Lymph % (Auto) 7.5 L [place] % (Auto) 3.9 Eos % (Auto) 0.0 L Baso % (Auto) 0.1 Gran # 9.62 H Lymph # 0.8 L [place] # 0.4 Eos # 0.0 Baso # 0.01 PT 11.8 INR 1.09 H APTT 26.0 pO2 140 H VBG pH 7.45 H VBG pCO2 40.0 VBG HCO3 27.8 VBG Total CO2 29.0 H VBG O2 Sat (Calc) 99.4 H VBG Base Excess 3.5 H VBG Potassium 3.8 Sodium 131 L Chloride 97 L Glucose 132 H Lactate 1.6 FiO2 21.0 Potassium 3.9 Carbon Dioxide 27 Anion Gap 11 BUN 72 H Creatinine 1.4 Est GFR ( Amer) 44 Est GFR (Non-Af Amer) 36 Random Glucose 123 H Calcium 8.0 L Phosphorus 2.9 Magnesium 2.4 H Total Bilirubin 0.6 AST 29 ALT 38 Alkaline Phosphatase 78 Troponin I 0.42 H* D NT-Pro-B Natriuret Pep 32771 H Total Protein 4.7 L Albumin 2.2 L Globulin 2.5 Albumin/Globulin Ratio 0.9 L Venous Blood Potassium 3.8 Urine Color Yellow Urine Appearance Clear Urine pH 6.0 Ur Specific Anderson 1.020 Urine Protein Negative Urine Glucose (UA) Negative Urine Ketones Negative Urine Blood Negative Urine Nitrate Negative Urine Bilirubin Negative Urine Urobilinogen 0.2 Ur Leukocyte Esterase Negative Assessment & Plan - Assessment and Plan (Free Text) Assessment: 81 year old female seen in ED, presented with altered mental status,sepsis. Patient and family known to me from previous admission. Patient is DNR/DNI. Niece and I have had lengthy discussion in the past regarding goals of care. She is aware of patient medical condition. Niece had decided she luke not want any invasive or aggressive measures taken. Niece asking for comfort care/[facility] hospice. Hospice services explained in detail. Niece is agreeable to hospice care. She is aware that is imminent and wants her aunt to at home surrounded by he family. Discussed family's wishes with ER staff. Time spent in discussion with family regarding goals of care,end of life care, 30 minutes Plan: DNR/DNI. Hospice evaluation.
[2016-11-07 17:52] VITALS: PULSE 82
[2016-11-07 18:00] VITALS: TEMP 98
[2016-11-07 18:01] VITALS: BP 89/43; RESP 16; O2SAT 100
== END 2016-11-07 17:51 | disposition home or self-care (01) ==
LOC: ED 10:01
DX: R65.10 Systemic inflammatory response syndrome (SIRS) of non-infectious origin without acute organ dysfunction (principal); F17.210 Nicotine dependence, cigarettes, uncomplicated; I10 Essential (primary) hypertension
CPT/HCPCS: 71010; 80053; 81003; 82803; 82948; 83735; 83880; 84100; 84484; 85025; 85610; 85730; 87040; 87086; 93005; 96365; 96367; 99285; J0692; J7040